=== PATIENT | male | born 1970 | race Caucasian/White ===

== ENCOUNTER → 2016-11-15 | Outpatient (CLI) | payer BC ==
--- NOTE | 2016-11-15 19:25 | XR ---
EXAMINATION TYPE: XR ankle complete RT DATE OF EXAM: 11/15/2016 7:14 PM COMPARISON: NONE HISTORY: Pain and swelling TECHNIQUE: 3 views FINDINGS: Ankle mortise is anatomic. I see no fracture nor dislocation. Joint spaces are normal. IMPRESSION: Negative right ankle exam.
== END | disposition home or self-care (01) ==
LOC: RADXRMAIN 18:45
PROVIDERS: ATTEND Family Medicine
DX: S93.401A Sprain of unspecified ligament of right ankle, initial encounter (principal)

== ENCOUNTER → 2019-01-29 | Outpatient (CLI) | payer BC ==
[2019-01-30 00:03] LABS: Anion Gap 12.5 mmol/L (4.00-12.00); Calcium 9.8 mg/dL (8.7-10.3); Carbon Dioxide 24.5 mmol/L (21.6-31.8); Potassium 5.1 mmol/L (3.5-5.5)
[2019-01-30 05:30] LABS: Hemoglobin A1C 7.5 % (4.0-6.0)
== END ==
LOC: LABWHC1 16:11
PROVIDERS: ATTEND Internal Medicine
DX: E11.9 Type 2 diabetes mellitus without complications (principal)
CPT/HCPCS: 36415; 80048; 83036

== ENCOUNTER 2019-03-04 18:36 | Inpatient (IN) | payer BC ==
[2019-03-04 20:44] LABS: Anisocytosis Slight; Basophils # (A) 0.1 k/uL (0-0.2); Basophils % (A) 1 %; Eosinophils # (A) 0.2 k/uL (0-0.7); Eosinophils % (A) 2 %; HCT 42.9 % (39.0-53.0); HGB 13.5 gm/dL (13.0-17.5); Hypochromasia Slight; Lymphocytes # (A) 2.5 k/uL (1.0-4.8); Lymphocytes % (A) 24 %; MCH 26.1 pg (25.0-35.0); MCHC 31.5 g/dL (31.0-37.0); MCV 82.8 fL (80.0-100.0); Mean Platelet Volume 7.8; Monocytes # (A) 0.6 k/uL (0-1.0); Monocytes % (A) 6 %; Neutrophils # (A) 6.7 k/uL (1.3-7.7); Neutrophils % (A) 65 %; Platelet Count 239 k/uL (150-450); RBC 5.18 m/uL (4.30-5.90); RDW 16.3 % (11.5-15.5); WBC 10.2 k/uL (3.8-10.6)
[2019-03-04 20:52] LABS: Albumin 4.1 g/dL (3.5-5.0); Calcium 9.5 mg/dL (8.4-10.2); INR 1.1 (<1.2); Partial Thromboplastin Time 22.9 sec (22.0-30.0); Potassium 4.8 mmol/L (3.5-5.1); Prothrombin Time 11.8 sec (9.0-12.0); Total Bilirubin 0.9 mg/dL (0.2-1.3); Total Protein 6.5 g/dL (6.3-8.2)
[2019-03-04] MEDS ORDERED: FUROSEMIDE 10 MG/ML 4 ML VIAL IV STA (21:48)
--- NOTE | 2019-03-04 21:50 | ED ---
SOB HPI - General Source: patient Mode of arrival: ambulatory Limitations: no limitations <Nury Sena - Last Filed: 03/05/19 01:04> <Jane Storm - Last Filed: 03/05/19 06:31> - General Chief Complaint: Shortness of Breath Stated Complaint: SOB Time Seen by Provider: 03/04/19 21:27 - History of Present Illness Initial Comments: 48-year-old male patient with history of diabetes presents to the emergency department today for evaluation of shortness of breath. Patient states he has had shortness of breath for the last week which is progressively worsening. Patient states that symptoms worsened significantly over the last 24 hours. Patient states he feels he is unable to lie down or he feels like he will drown. Patient states he is also having increased swelling to the legs. Denies any chest pain. States he is able to walk only very short distances before becoming examination of breath. States he does have a dry cough with this. Denies any sputum production. Denies any hemoptysis. He denies any fever or chills with this. Patient does have a family history of coronary artery disease, his father has 2 stents at age 60. Patient denies any recent rash, abdominal pain, nausea, vomiting, diarrhea, constipation, back pain, numbness, tingling, dizziness, weakness, hematuria, dysuria, urinary urgency, urinary frequency, headache, visual changes, or any other complaints. (Nury Sena) - Related Data Home Medications Medication Instructions Recorded Confirmed Furosemide [Lasix] 20 mg PO DAILY 03/04/19 03/04/19 Potassium Chloride ER [K-Dur 10] 10 meq PO DAILY 03/04/19 03/04/19 sitaGLIPtin PHOS/metFORMIN HCL 1 tab PO DAILY 03/04/19 03/04/19 [Janumet 50-1,000 mg Tablet] Allergies Allergy/AdvReac Type Severity Reaction Status Date / Time No Known Allergies Allergy Verified 03/04/19 18:59 Review of Systems ROS Other: All systems not noted in ROS Statement are negative. <Nury Sena - Last Filed: 03/05/19 01:04> ROS Other: All systems not noted in ROS Statement are negative. <Jane Storm - Last Filed: 03/05/19 06:31> ROS Statement: Those systems with pertinent positive or pertinent negative responses have been documented in the HPI. Past Medical History Past Medical History: Heart Failure, Diabetes Mellitus History of Any Multi-Drug Resistant Organisms: None Reported Past Surgical History: Back Surgery Past Psychological History: No Psychological Hx Reported Smoking Status: Never smoker Past Alcohol Use History: None Reported Past Drug Use History: None Reported <Nury Sena M - Last Filed: 03/05/19 01:04> General Exam Limitations: no limitations General appearance: alert, in no apparent distress, other (This is a well- developed, well-nourished adult male patient in no acute distress. Vital signs upon presentation are temperature 98.0F, pulse 114, respirations 20, blood pressure 127/84, pulse ox 100% on room air.) Eye exam: Present: normal appearance, PERRL, EOMI. Absent: scleral icterus, conjunctival injection, periorbital swelling ENT exam: Present: normal exam, normal oropharynx, mucous membranes moist Respiratory exam: Present: normal lung sounds bilaterally. Absent: respiratory distress, wheezes, rales, rhonchi, stridor Cardiovascular Exam: Present: regular rate, normal rhythm, normal heart sounds. Absent: systolic murmur, diastolic murmur, rubs, gallop, clicks GI/Abdominal exam: Present: soft, normal bowel sounds. Absent: distended, tenderness, guarding, rebound, rigid Neurological exam: Present: alert, oriented X3, CN II-XII intact Psychiatric exam: Present: normal affect, normal mood Skin exam: Present: warm, dry, intact, normal color. Absent: rash <Nury Sena M - Last Filed: 03/05/19 01:04> Course Vital Signs 03/04/19 03/04/19 03/04/19 18:56 20:46 21:50 Temperature 98.0 F 98.5 F Pulse Rate 114 H 114 H 116 H Respiratory 20 18 20 Rate Blood Pressure 127/84 124/81 127/97 O2 Sat by Pulse 100 98 97 Oximetry 03/04/19 03/05/19 03/05/19 23:01 02:00 03:00 Temperature Pulse Rate 112 H 102 H 100 Respiratory 18 20 20 Rate Blood Pressure 117/93 114/79 100/72 O2 Sat by Pulse 98 97 97 Oximetry 03/05/19 06:00 Temperature Pulse Rate 97 Respiratory 16 Rate Blood Pressure 110/76 O2 Sat by Pulse 97 Oximetry Medical Decision Making - Lab Data Result diagrams: 03/04/19 20:13 03/04/19 20:13 - EKG Data -: EKG Interpreted by Ok - Radiology Data Radiology results: report reviewed, image reviewed <Nury Sena - Last Filed: 03/05/19 01:04> - Lab Data Result diagrams: 03/04/19 20:13 03/04/19 20:13 <Jane Storm - Last Filed: 03/05/19 06:31> - Medical Decision Making 48-year-old male patient presents to the emergency department today for evaluation of progressively worsening shortness of breath over the last week. Physical examination did reveal clear equal lung sounds. Patient is tachycardic with rates between 112 and 114. Does exhibit a dry cough and lower extremity nonpitting edema. EKG was obtained and showed sinus tachycardia. Labs reviewed and did reveal elevated BNP at 3800. Elevated troponin at 0.071. Did perform CT angiography of the chest given his elevated heart rate, this shows evidence for small right and left pleural effusions. No evidence for pulmonary embolism. Patient was started on heparin for elevated troponin. Cardiology will be consulted. He is given IV Lasix. Dr. Sams is accepting admission. (Nury Sena) % And evaluated patient. I reviewed the chart, given the patient presented with tachycardia and shortness of breath CT PE study was ordered a resulted negative for any signs of pulmonary embolism there is evidence of congestive heart failure before and after was ordered. Patient was admitted to Dr. sams. (Jane Storm) - Lab Data Lab Results 03/04/19 03/04/19 03/04/19 Range/Units 20:13 20:13 20:13 WBC 10.2 (3.8-10.6) k/uL RBC 5.18 (4.30-5.90) m/uL Hgb 13.5 (13.0-17.5) gm/dL Hct 42.9 (39.0-53.0) % MCV 82.8 (80.0-100.0) fL MCH 26.1 (25.0-35.0) pg MCHC 31.5 (31.0-37.0) g/dL RDW 16.3 H (11.5-15.5) % Plt Count 239 (150-450) k/uL Neutrophils % 65 % Lymphocytes % 24 % Monocytes % 6 % Eosinophils % 2 % Basophils % 1 % Neutrophils # 6.7 (1.3-7.7) k/uL Lymphocytes # 2.5 (1.0-4.8) k/uL Monocytes # 0.6 (0-1.0) k/uL Eosinophils # 0.2 (0-0.7) k/uL Basophils # 0.1 (0-0.2) k/uL Hypochromasia Slight Anisocytosis Slight PT (9.0-12.0) sec INR (<1.2) APTT (22.0-30.0) sec Sodium 143 (137-145) mmol/L Potassium 4.8 (3.5-5.1) mmol/L Chloride 109 H (98-107) mmol/L Carbon Dioxide 26 (22-30) mmol/L Anion Gap 8 mmol/L BUN 16 (9-20) mg/dL Creatinine 1.16 (0.66-1.25) mg/dL Est GFR (CKD-EPI)AfAm 85 (>60 ml/min/1.73 sqM) Est GFR (CKD-EPI)NonAf 74 (>60 ml/min/1.73 sqM) Glucose 113 H (74-99) mg/dL Calcium 9.5 (8.4-10.2) mg/dL Magnesium (1.6-2.3) mg/dL Total Bilirubin 0.9 (0.2-1.3) mg/dL AST 41 (17-59) U/L ALT 44 (21-72) U/L Alkaline Phosphatase 97 (38-126) U/L Troponin I (0.000-0.034) ng/mL NT-Pro-B Natriuret Pep 3530 pg/mL Total Protein 6.5 (6.3-8.2) g/dL Albumin 4.1 (3.5-5.0) g/dL 03/04/19 03/04/19 03/04/19 Range/Units 20:13 20:13 20:13 WBC (3.8-10.6) k/uL RBC (4.30-5.90) m/uL Hgb (13.0-17.5) gm/dL Hct (39.0-53.0) % MCV (80.0-100.0) fL MCH (25.0-35.0) pg MCHC (31.0-37.0) g/dL RDW (11.5-15.5) % Plt Count (150-450) k/uL Neutrophils % % Lymphocytes % % Monocytes % % Eosinophils % % Basophils % % Neutrophils # (1.3-7.7) k/uL Lymphocytes # (1.0-4.8) k/uL Monocytes # (0-1.0) k/uL Eosinophils # (0-0.7) k/uL Basophils # (0-0.2) k/uL Hypochromasia Anisocytosis PT 11.8 (9.0-12.0) sec INR 1.1 (<1.2) APTT 22.9 (22.0-30.0) sec Sodium (137-145) mmol/L Potassium (3.5-5.1) mmol/L Chloride (98-107) mmol/L Carbon Dioxide (22-30) mmol/L Anion Gap mmol/L BUN (9-20) mg/dL Creatinine (0.66-1.25) mg/dL Est GFR (CKD-EPI)AfAm (>60 ml/min/1.73 sqM) Est GFR (CKD-EPI)NonAf (>60 ml/min/1.73 sqM) Glucose (74-99) mg/dL Calcium (8.4-10.2) mg/dL Magnesium 2.1 (1.6-2.3) mg/dL Total Bilirubin (0.2-1.3) mg/dL AST (17-59) U/L ALT (21-72) U/L Alkaline Phosphatase (38-126) U/L Troponin I 0.071 H* (0.000-0.034) ng/mL NT-Pro-B Natriuret Pep pg/mL Total Protein (6.3-8.2) g/dL Albumin (3.5-5.0) g/dL - EKG Data EKG Comments: EKG obtained at 2038 shows sinus tachycardia with a ventricular rate of 112 compare interval 160, QRS duration 142, QT 378, QTC 515. (Nury Sena) - Radiology Data Two-view x-ray of the chest is obtained. Report was reviewed in its entirety. Impression by Dr. Edgar Sullivan shows opacity to the right lower lung zone which partially opacifies the right hemidiaphragm. Mild to moderately enlarged cardiac silhouette. CT angiography of the chest was obtained. Report was reviewed in its entirety. Impression by Dr. Laureano shows cardiomegaly with small right greater than left pleural effusions and intralobular septal thickening. Findings concerning for congestive heart failure. Mildly prominent subcarinal and perihilar lymph nodes, possibly reactive an etiology. (Nury Sena) Disposition Decision to Admit Reason: Admit from EC Decision Date: 03/04/19 Decision Time: 22:28 <Nury Sena - Last Filed: 03/05/19 01:04> <Jane Storm - Last Filed: 03/05/19 06:31> Clinical Impression: CHF (congestive heart failure), Elevated troponin, Dyspnea Disposition: ADMITTED IP TO THIS [facility] Condition: Serious
[2019-03-04] MEDS ORDERED: HEPARIN SODIUM,PORCINE 5,000 UNIT/ML 1 ML VIAL IV PRN (21:57)
[2019-03-04] MEDS ORDERED: HEPARIN SODIUM,PORCINE 5,000 UNIT/ML 1 ML VIAL IV ONE (21:57)
[2019-03-04] MEDS ORDERED: NALOXONE 0.4 MG/ML 1 ML VIAL IV PRN (22:12)
[2019-03-04] MEDS: HEPARIN SOD,PORK IN 0.45% NACL 25,000 UNIT in 0.45% NACL 1 250ML.BAG IV SCH (22:15)
--- NOTE | 2019-03-04 22:35 | XR ---
EXAMINATION: XR chest 2V DATE AND TIME: 03/04/2019 9:38 PM CLINICAL INDICATION: PHH; SOB TECHNIQUE: Departmental protocol COMPARISON: None FINDINGS: There is added opacity within the right lower lung zone which partially opacifies the right hemidiaphragm and is associated with partial right pleural shadow thickening. The findings can corre late with a clinical diagnosis of developing right lower lobe bronchopneumonia and with possibility o f small right pleural effusion. Remainder of the lungs are clear. Pleural space evaluation is otherwise negative. The cardiac silhouette is mild moderately enlarged. Mediastinal silhouette otherwise unremarkable. No acute skeletal or soft tissue findings are evident. IMPRESSION: 1. Right lung base findings. 2. Mild-moderately enlarged cardiac silhouette.
--- NOTE | 2019-03-04 23:13 | CT ---
EXAM: CT Angiography Chest With Intravenous Contrast CLINICAL HISTORY: ITS.REASON CT Reason: Pain TECHNIQUE: Axial computed tomographic angiography images of the chest with intravenous contrast using pulmonary embolism protocol. CTDI is 9.7 mGy and DLP is 390.7 mGy-cm. This CT exam was performed using one or more of the following dose reduction techniques: automated exposure control, adjustment of the mA and/or kV according to patient size, and/or use of iterative reconstruction technique. MIP reconstructed images were created and reviewed. COMPARISON: No relevant prior studies available. FINDINGS: Pulmonary arteries: Unremarkable. No pulmonary embolism. Aorta: No acute findings. No thoracic aortic aneurysm. Lungs: Unremarkable. No mass. No consolidation. Pleural space: Small right pleural effusion. Fluid tracking in the right major fissure. Trace left pleural effusion. Mild diffuse interlobular septal thickening. No pneumothorax. Heart: Cardiomegaly. Trace pericardial fluid. No evidence of RV dysfunction. Bones/joints: No acute fracture. No dislocation. Soft tissues: Unremarkable. Lymph nodes: Mildly prominent subcarinal and perihilar lymph nodes. IMPRESSION: Cardiomegaly with small right greater than left pleural effusions and interlobular septal thickening. Findings concerning for congestive heart failure. Mildly prominent subcarinal and perihilar lymph nodes, possibly reactive in etiology.
[2019-03-05] MEDS ORDERED: traMADol 50 MG TAB PO PRN (07:52)
[2019-03-05] MEDS ORDERED: IPRATROPIUM-ALBUTEROL 3 ML NEB INHALATION PRN (07:52)
--- NOTE | 2019-03-05 08:01 | P.HPIM ---
History of Present Illness This is a pleasant 48 years old male with past medical history of heart failure and diabetes mellitus on Janumet and by mouth Lasix. Presents because of dyspnea for 1 week and a half, his dyspnea is mainly exertional and he went down from walking normally down to 10 feeds before he got dyspneic. He denies orthopnea or paroxysmal nocturnal dyspnea. He denies chest pain or discomfort. No nausea vomiting. However patient is complaining of from cough and a total of clear phlegm. No change in urine or bowel habits. No dizziness. No fever. Patient also has bilateral leg swelling Patient denies history of smoking or illicit drugs. He drinks alcohol occasionally Vitas looks stable, except for mild tachycardia improving this morning.labs are reviewed and show an unremarkable CBC, BMP and liver enzymes. However he has e levated troponin at 0.07 and 0.09. EKG showing sinus tachycardia at 112 with nonspecific intra-ventricular block. He has negative CTA of the thorax for pulmonary embolism, however it is suspicious for congestive heart failure and right-sided pleural effusion. In the emergency room patient was given 1 dose of ventral Lasix, he was started on Lasix 40 mg twice a day and heparin drip. Review of Systems CONSTITUTIONAL: No fever, no malaise, no fatigue. HEENT: No recent visual problems or hearing problems. Denied any sore throat. CARDIOVASCULAR: No orthopnea, PND, no palpitations, no syncope. PULMONARY: No shortness of breath, no cough, no hemoptysis. GASTROINTESTINAL: No diarrhea, no nausea, no vomiting, no abdominal pain. Normoactive bowel sounds. NEUROLOGICAL: No headaches, no weakness, no numbness. HEMATOLOGICAL: Denies any bleeding or petechiae. GENITOURINARY: Denies any burning micturition, frequency, or urgency. MUSCULOSKELETAL/RHEUMATOLOGICAL: Denies any joint pain, swelling, or any muscle pain. ENDOCRINE: Denies any polyuria or polydipsia. Past Medical History Past Medical History: Heart Failure, Diabetes Mellitus History of Any Multi-Drug Resistant Organisms: None Reported Past Surgical History: Back Surgery Past Psychological History: No Psychological Hx Reported Smoking Status: Never smoker Past Alcohol Use History: None Reported Past Drug Use History: None Reported Medications and Allergies Home Medications Medication Instructions Recorded Confirmed Type Furosemide [Lasix] 20 mg PO DAILY 03/04/19 03/04/19 History Potassium Chloride ER [K-Dur 10] 10 meq PO DAILY 03/04/19 03/04/19 History sitaGLIPtin PHOS/metFORMIN HCL 1 tab PO DAILY 03/04/19 03/04/19 History [Janumet 50-1,000 mg Tablet] Allergies Allergy/AdvReac Type Severity Reaction Status Date / Time No Known Allergies Allergy Verified 03/04/19 18:59 Physical Exam Vitals: Vital Signs Temp Pulse Resp BP Pulse Ox 03/05/19 06:00 97 16 110/76 97 03/05/19 03:00 100 20 100/72 97 03/05/19 02:00 102 H 20 114/79 97 03/04/19 23:01 112 H 18 117/93 98 03/04/19 21:50 116 H 20 127/97 97 03/04/19 20:46 98.5 F 114 H 18 124/81 98 03/04/19 18:56 98.0 F 114 H 20 127/84 100 Intake and Output 03/04/19 03/05/19 03/05/19 22:59 06:59 14:59 Intake Total 65 Balance 65 Intake: Intake, IV Titration 65 Amount Heparin Sod,Pork in 0.45% 65 NaCl 25,000 unit In 0.45 % NaCl 1 250ml.bag @ 10. 55 UNITS/KG/HR 10.002 mls /hr IV .Q24H [facility] Rx#: [id number] Other: Weight 94.801 kg GENERAL: The patient is alert and oriented x3, not in any acute distress. Well developed, well nourished. HEENT: Pupils are round and equally reacting to light. EOMI. No scleral icterus. No conjunctival pallor. Normocephalic, atraumatic. No pharyngeal erythema. No thyromegaly. CARDIOVASCULAR: S1 and S2 present. No murmurs, rubs, or gallops. -PULMONARY: Chest is clear to auscultation, no wheezing. Bilateral basal crepitation ABDOMEN: Soft, nontender, nondistended, normoactive bowel sounds. No palpable organomegaly. MUSCULOSKELETAL: No joint swelling or deformity. -EXTREMITIES: No cyanosis, clubbing,. Bilateral moderate leg edema, pitting.- NEUROLOGICAL: Gross neurological examination did not reveal any focal deficits. SKIN: No rashes. Results CBC & Chem 7: 03/04/19 20:13 03/04/19 20:13 Labs: Abnormal Lab Results - Last 24 Hours (Table) 03/04/19 03/04/19 03/04/19 Range/Units 20:13 20:13 20:13 RDW 16.3 H (11.5-15.5) % APTT (22.0-30.0) sec Chloride 109 H (98-107) mmol/L Glucose 113 H (74-99) mg/dL Troponin I 0.071 H* (0.000-0.034) ng/mL 03/05/19 03/05/19 Range/Units 02:26 03:49 RDW (11.5-15.5) % APTT 41.6 H (22.0-30.0) sec Chloride (98-107) mmol/L Glucose (74-99) mg/dL Troponin I 0.093 H* (0.000-0.034) ng/mL Assessment and Plan Assessment: Elevated troponins, mostly non-ST elevation myocardial infarction Acute on chronic congestive heart failure, unknown ejection fraction Type 2 diabetes mellitus Plan: This is a pleasant 48 years old male who presents with non-STEMI and acute CHF. Continue with heparin drip. Cardiology consult. Order echocardiogram. Pain management regarding chronic or recurrent continue with insulin sliding scale. Hold Janumet for now Labs and medication were reviewed.. Continue same treatment. Continue with symptomatic treatment. Resume home medication. Monitor lytes and vitals. DVT and GI prophylaxis. Further recommendations of the clinical course of the patient DVT prophylaxis: heparin GI Prophylaxis: Pepcid PT/OT: Pending Prognosis is guarded
--- NOTE | 2019-03-05 09:18 | P.CRDCN ---
History of Present Illness Consult date: 03/05/19 Requesting physician: Biju E Sheet Reason for Consult (text): Shortness of breath Chief complaint: Exertional shortness of breath, bilateral leg swelling History of present illness: This is a pleasant 48-year-old gentleman with history of hypertension in the past, he states he was taken off his blood pressure pills because his blood pressure has been running normal, diagnosed with diabetes one year ago, never been told to have hyperlipidemia and he is not currently on a statin, he is a nonsmoker, rarely drinks alcohol. Patient presents to the hospital with symptoms of progressively worsening exertional shortness of breath, PND and orthopnea, lower extremity edema, which has been present for approximately 2 weeks, worsening in severity especially over the past couple of days. He also states that over the past couple of days he's noted associated heart racing. Patient does state that his father had stents placed in his 60s, patient has had a prior stress test but that was performed in 2001. The patient denies any recent viral illness, he just complains of a hacking cough which has been present for about 2 weeks. Patient went to be evaluated at the outpatient [facility], an x-ray was performed there which showed fluid in his lungs and he was advised to come to the emergency room. Chest x-ray performed here which revealed a possible small right pleural effusion and congestive heart failure. CTA of the chest negative for pulmonary embolism, cardiomegaly with small right greater than left pleural effusions and interlobular septal thickening findings concerning for congestive heart failure. EKG showed a sinus tachycardia with a left bundle-branch block pattern. Blood pressure on arrival here 127/80 with a heart rate of 116, 100% on room air. Blood pressure this morning 110/70 with a heart rate in the 90s, 97% on 2 L of oxygen. White blood cell count 10.2, hemoglobin 13.5, platelet count 239. Sodium 143, potassium 4.8, BUN 16 and creatinine 1.1. Magnesium 2.1. BNP level 3530. Troponin 0.071 ,.093. At the time of my examination this morning, patient denies any shortness of breath sitting up in bed, he does state that he feels his fluid collection is less in his body then when he presented here. Patient was initiated on IV Lasix on arrival here, he is also on IV heparin. We will start the patient on a baby aspirin, and initiate, lisinopril, and metoprolol 25 daily, as well as some Aldactone. Continue IV Lasix and IV heparin at this time. Past Medical History Past Medical History: Heart Failure, Diabetes Mellitus History of Any Multi-Drug Resistant Organisms: None Reported Past Surgical History: Back Surgery Past Psychological History: No Psychological Hx Reported Smoking Status: Never smoker Past Alcohol Use History: None Reported Past Drug Use History: None Reported Medications and Allergies Home Medications Medication Instructions Recorded Confirmed Type Furosemide [Lasix] 20 mg PO DAILY 03/04/19 03/04/19 History Potassium Chloride ER [K-Dur 10] 10 meq PO DAILY 03/04/19 03/04/19 History sitaGLIPtin PHOS/metFORMIN HCL 1 tab PO DAILY 03/04/19 03/04/19 History [Janumet 50-1,000 mg Tablet] Allergies Allergy/AdvReac Type Severity Reaction Status Date / Time No Known Allergies Allergy Verified 03/04/19 18:59 Physical Exam Vitals: Vital Signs Temp Pulse Resp BP Pulse Ox 03/05/19 06:00 97 16 110/76 97 03/05/19 03:00 100 20 100/72 97 03/05/19 02:00 102 H 20 114/79 97 03/04/19 23:01 112 H 18 117/93 98 03/04/19 21:50 116 H 20 127/97 97 03/04/19 20:46 98.5 F 114 H 18 124/81 98 03/04/19 18:56 98.0 F 114 H 20 127/84 100 Intake and Output 03/04/19 03/05/19 03/05/19 22:59 06:59 14:59 Intake Total 65 Balance 65 Intake: Intake, IV Titration 65 Amount Heparin Sod,Pork in 0.45% 65 NaCl 25,000 unit In 0.45 % NaCl 1 250ml.bag @ 10. 55 UNITS/KG/HR 10.002 mls /hr IV .Q24H [facility] Rx#: [id number] Other: Weight 94.801 kg PHYSICAL EXAMINATION: GENERAL: 48-year-old gentleman in no acute distress at the time of my examination HEENT: Head is atraumatic, normocephalic. Pupils equal, round. Sclera anicteric. Conjunctiva are clear. Mucous membranes of the mouth are moist. Neck is supple. There is elevated jugular venous pressure. No carotid bruit is heard. HEART EXAMINATION: Heart S1, S2 normal. No murmur or gallop heard. CHEST EXAMINATION: Lungs reveal diminished air entry to bilateral bases, fine rales heard bilaterally. ABDOMEN: Soft, nontender. Bowel sounds are heard. No organomegaly noted. EXTREMITIES:[ 2+ peripheral pulses with trace evidence of bilateral peripheral edema NEUROLOGIC patient is awake, alert and oriented 3 . . Results 03/04/19 20:13 03/04/19 20:13 Cardiac Enzymes 03/04/19 03/04/19 03/05/19 Range/Units 20:13 20:13 02:26 AST 41 (17-59) U/L Troponin I 0.071 H* 0.093 H* (0.000-0.034) ng/mL Coagulation 03/04/19 03/05/19 Range/Units 20:13 03:49 PT 11.8 (9.0-12.0) sec APTT 22.9 41.6 H (22.0-30.0) sec CBC 03/04/19 Range/Units 20:13 WBC 10.2 (3.8-10.6) k/uL RBC 5.18 (4.30-5.90) m/uL Hgb 13.5 (13.0-17.5) gm/dL Hct 42.9 (39.0-53.0) % Plt Count 239 (150-450) k/uL Comprehensive Metabolic Panel 03/04/19 Range/Units 20:13 Sodium 143 (137-145) mmol/L Potassium 4.8 (3.5-5.1) mmol/L Chloride 109 H (98-107) mmol/L Carbon Dioxide 26 (22-30) mmol/L BUN 16 (9-20) mg/dL Creatinine 1.16 (0.66-1.25) mg/dL Glucose 113 H (74-99) mg/dL Calcium 9.5 (8.4-10.2) mg/dL AST 41 (17-59) U/L ALT 44 (21-72) U/L Alkaline Phosphatase 97 (38-126) U/L Total Protein 6.5 (6.3-8.2) g/dL Albumin 4.1 (3.5-5.0) g/dL Current Medications Generic Name Dose Route Start Last Admin Trade Name Freq PRN Reason Stop Dose Admin Albuterol/Ipratropium 3 ml 03/05/19 07:52 Duoneb 0.5 Mg-3 Mg/3 Ml Soln INHALATION RT-QID PRN Shortness Of Breath Or Wheezing Famotidine 20 mg 03/05/19 09:00 Pepcid IV Q12HR [facility] Furosemide 40 mg 03/05/19 09:00 Lasix IV Q12HR [facility] Heparin Sodium (Porcine) 0 unit 03/04/19 21:57 03/05/19 04:48 Heparin IV 2,370 unit PER PROTOCOL PRN Administration Low PTT Protocol Heparin Sodium/Sodium Chloride 250 mls @ 10.002 mls/hr 03/04/19 22:00 03/05/19 04:45 25,000 unit/ Sodium Chloride IV 12.66 units/kg/hr .Q24H [facility] 12 mls/hr Titration Protocol 10.55 UNITS/KG/HR Sodium Chloride 1,000 mls @ 20 mls/hr 03/04/19 22:15 Saline 0.9% IV .Q24H [facility] Lisinopril 2.5 mg 03/05/19 09:00 Zestril PO DAILY [facility] Metoprolol Succinate 25 mg 03/05/19 09:00 Toprol Xl PO DAILY [facility] Naloxone HCl 0.2 mg 03/04/19 22:12 Narcan IV Q2M PRN Opioid Reversal Spironolactone 25 mg 03/05/19 09:00 Aldactone PO DAILY [facility] Tramadol HCl 50 mg 03/05/19 07:52 Ultram PO QID PRN Pain Intake and Output 03/04/19 03/05/19 03/05/19 22:59 06:59 14:59 Intake Total 65 Balance 65 Intake: Intake, IV Titration 65 Amount Heparin Sod,Pork in 0.45% 65 NaCl 25,000 unit In 0.45 % NaCl 1 250ml.bag @ 10. 55 UNITS/KG/HR 10.002 mls /hr IV .Q24H [facility] Rx#: [id number] Other: Weight 94.801 kg 03/04/19 20:13 03/04/19 20:13 EKG Interpretations (text) EKG shows a sinus tachycardia with a left bundle-branch block pattern Assessment and Plan Plan: Assessment and plan #1 congestive cardiac failure, LV function unknown #2 non-Q-wave HI, troponins 0.071, 0.093. #3 diabetes #4 prior documented history of hypertension, not currently on any antihypertensives. #5 family history of premature coronary artery disease Plan We will obtain an echocardiogram with Doppler study, repeat EKG, start the patient on a baby aspirin, metoprolol, lisinopril, and Aldactone. Continue to diurese the patient with IV Lasix, continue IV heparin and obtain a third troponin value. Patient will require cardiac catheterization during this admission, the risks and the benefits were explained to the patient and his in details. Further recommendations to follow. DNP note has been reviewed, I agree with a documented findings and plan of care. Patient was seen and examined.
[2019-03-05 09:50] LABS: Anisocytosis Slight; Basophils # (A) 0.1 k/uL (0-0.2); Basophils % (A) 1 %; Eosinophils # (A) 0.3 k/uL (0-0.7); Eosinophils % (A) 3 %; HCT 39.6 % (39.0-53.0); HGB 12.5 gm/dL (13.0-17.5); Lymphocytes # (A) 2.7 k/uL (1.0-4.8); Lymphocytes % (A) 27 %; MCH 26.1 pg (25.0-35.0); MCHC 31.6 g/dL (31.0-37.0); MCV 82.5 fL (80.0-100.0); Monocytes # (A) 0.6 k/uL (0-1.0); Monocytes % (A) 6 %; Neutrophils % (A) 61 %; Platelet Count 222 k/uL (150-450); RDW 16.4 % (11.5-15.5); WBC 9.7 k/uL (3.8-10.6)
[2019-03-05 11:36] LABS: Glucose,Whole Blood 133 mg/dL (75-99)
[2019-03-05] MEDS: ASPIRIN 81 MG PO SCH (16:35)
[2019-03-05] MEDS: METOPROLOL SUCCINATE (ER) 25 MG TAB.ER.24H PO SCH (16:35)
[2019-03-05] MEDS: SPIRONOLACTONE 25 MG TAB PO SCH (16:35)
[2019-03-05] MEDS: LISINOPRIL 2.5 MG TAB PO SCH (16:35)
[2019-03-05] MEDS: FUROSEMIDE 10 MG/ML 4 ML VIAL IV SCH ×2 (16:36→19:44)
[2019-03-05] MEDS: FAMOTIDINE 20 MG/2 ML VIAL IV SCH ×2 (16:36→19:43)
[2019-03-05 18:30] LABS: Glucose,Whole Blood 149 mg/dL (75-99)
[2019-03-05] MEDS: SODIUM CHLORIDE 0.9% 1,000 ML IV SCH (18:56)
--- NOTE | 2019-03-05 19:04 | ECHOF ---
Referral Reason:new heart failure MEASUREMENTS -------- HEIGHT: 180.3 cm WEIGHT: 94.8 kg BP: 110/76 IVSd: 1.0 cm (0.6 - 1.1) LVIDd: 6.6 cm (3.9 - 5.3) LVPWd: 0.9 cm (0.6 - 1.1) IVSs: 1.0 cm LVIDs: 5.6 cm LVPWs: 1.4 cm RVIDd: 3.9 cm (< 3.3) LAESV Index (A-L): 39.26 ml/m Ao Diam: 2.8 cm (2.0 - 3.7) LA Diam: 3.5 cm (2.7 - 3.8) AV Cusp: 2.0 cm (1.5 - 2.6) EPSS: 2.3 cm MV E Tony: 0.86 m/s MV DecT: 127 ms MV A Tony: 0.25 m/s MV E/A Ratio: 3.38 RAP: 5.00 mmHg RVSP: 39.23 mmHg MV EF SLOPE: 156.47 mm/s (70 - 150) MV EXCURSION: 21.87 mm (> 18.000) FINDINGS -------- Sinus rhythm. This was a technically good study. The left ventricle is moderately dilated. Left ventricular wall thickness is normal. There is sev ere global hypokinesis of LV . Overall left ventricular systolic function is severely impaired with , an EF < 20%. The right ventricle is mild to moderately enlarged. LA is moderately dilated 34-39 ml/m2 The right atrial size is normal. Interatrial and interventricular septum intact. The aortic valve is trileaflet and appears structurally normal. Moderate mitral regurgitation is present. Moderate tricuspid regurgitation present. There is mild pulmonary hypertension. The right ventric ular systolic pressure, as measured by Doppler, is 39.23mmHg. There is no pulmonic regurgitation present. The aortic root size is normal. Normal inferior vena cava with normal inspiratory collapse consistent with estimated right atrial pre ssure of 5 mmHg. There is no pericardial effusion. CONCLUSIONS -------- 1. Sinus rhythm. 2. This was a technically good study. 3. The left ventricle is moderately dilated. 4. Left ventricular wall thickness is normal. 5. There is severe global hypokinesis of LV . 6. Overall left ventricular systolic function is severely impaired with, an EF < 20%. 7. The right ventricle is mild to moderately enlarged. 8. LA is moderately dilated 34-39 ml/m2 9. The right atrial size is normal. 10. Interatrial and interventricular septum intact. 11. The aortic valve is trileaflet and appears structurally normal. 12. Moderate mitral regurgitation is present. 13. Moderate tricuspid regurgitation present. 14. There is mild pulmonary hypertension. 15. The right ventricular systolic pressure, as measured by Doppler, is 39.23mmHg. 16. There is no pulmonic regurgitation present. 17. The aortic root size is normal. 18. Normal inferior vena cava with normal inspiratory collapse consistent with estimated right atrial pressure of 5 mmHg. 19. There is no pericardial effusion. MANUFACTURING LEAD: Sherry Valencia RDCS
[2019-03-05] MEDS: HEPARIN SOD,PORK IN 0.45% NACL 25,000 UNIT in 0.45% NACL 1 250ML.BAG IV SCH (19:44)
[2019-03-06 05:27] LABS: Glucose,Whole Blood 139 mg/dL (75-99)
[2019-03-06] MEDS: SODIUM CHLORIDE 0.9% 1,000 ML IV SCH (05:40)
[2019-03-06 06:29] LABS: Basophils # (A) 0.1 k/uL (0-0.2); Basophils % (A) 1 %; Eosinophils # (A) 0.3 k/uL (0-0.7); Eosinophils % (A) 3 %; HCT 38.9 % (39.0-53.0); HGB 12.4 gm/dL (13.0-17.5); Lymphocytes # (A) 3.1 k/uL (1.0-4.8); Lymphocytes % (A) 35 %; MCH 26.5 pg (25.0-35.0); Mean Platelet Volume 7.3; Monocytes # (A) 0.4 k/uL (0-1.0); Monocytes % (A) 5 %; Neutrophils # (A) 4.7 k/uL (1.3-7.7); Neutrophils % (A) 54 %; Platelet Count 233 k/uL (150-450); RBC 4.69 m/uL (4.30-5.90); RDW 15.5 % (11.5-15.5); WBC 8.7 k/uL (3.8-10.6)
[2019-03-06 07:00] LABS: Calcium 8.9 mg/dL (8.4-10.2); Potassium 4.1 mmol/L (3.5-5.1)
[2019-03-06] MEDS: LISINOPRIL 2.5 MG TAB PO SCH (08:43)
[2019-03-06] MEDS: ASPIRIN 81 MG PO SCH (08:44)
[2019-03-06] MEDS: FUROSEMIDE 10 MG/ML 4 ML VIAL IV SCH ×2 (08:44→21:25)
[2019-03-06] MEDS: METOPROLOL SUCCINATE (ER) 25 MG TAB.ER.24H PO SCH (08:44)
[2019-03-06] MEDS: FAMOTIDINE 20 MG/2 ML VIAL IV SCH (08:44)
[2019-03-06] MEDS: SPIRONOLACTONE 25 MG TAB PO SCH (08:44)
[2019-03-06 11:34] VITALS: BMI 28.2
[2019-03-06] MEDS ORDERED: SODIUM CHLORIDE 0.9% 1,000 ML in EMPTY BAG 1 BAG IV ONE (11:36)
[2019-03-06] MEDS ORDERED: ALPRAZolam 0.5 MG TAB PO PRN (11:36)
[2019-03-06] MEDS ORDERED: ATORVASTATIN 80 MG TAB PO STA (11:36)
[2019-03-06] MEDS ORDERED: ALPRAZolam 0.25 MG TAB PO PRN (11:36)
[2019-03-06] MEDS ORDERED: ASPIRIN 325 MG TAB PO STA (11:36)
[2019-03-06] MEDS ORDERED: NITROGLYCERIN SL TABS 0.4 MG TAB SUBLINGUAL PRN (11:36)
--- NOTE | 2019-03-06 11:36 | P.PN ---
Subjective Progress Note Date: 03/06/19 This is a pleasant 48-year-old gentleman with history of hypertension in the past, he states he was taken off his blood pressure pills because his blood pressure has been running normal, diagnosed with diabetes one year ago, never been told to have hyperlipidemia and he is not currently on a statin, he is a nonsmoker, rarely drinks alcohol. Patient presents to the hospital with symptoms of progressively worsening exertional shortness of breath, PND and orthopnea, lower extremity edema, which has been present for approximately 2 weeks, worsening in severity especially over the past couple of days. He also states that over the past couple of days he's noted associated heart racing. Patient does state that his father had stents placed in his 60s, patient has had a prior stress test but that was performed in 2001. The patient denies any recent viral illness, he just complains of a hacking cough which has been present for about 2 weeks. Patient went to be evaluated at the outpatient clinic, an x-ray was performed there which showed fluid in his lungs and he was advised to come to the emergency room. Chest x-ray performed here which revealed a possible small right pleural effusion and congestive heart failure. CTA of the chest negative for pulmonary embolism, cardiomegaly with small right greater than left pleural effusions and interlobular septal thickening findings concerning for congestive heart failure. EKG showed a sinus tachycardia with a left bundle-branch block pattern. Blood pressure on arrival here 127/80 with a heart rate of 116, 100% on room air. Blood pressure this morning 110/70 with a heart rate in the 90s, 97% on 2 L of oxygen. White blood cell count 10.2, hemoglobin 13.5, platelet count 239. Sodium 143, potassium 4.8, BUN 16 and creatinine 1.1. Magnesium 2.1. BNP level 3530. Troponin 0.071 ,.093. At the time of my examination this morning, patient denies any shortness of breath sitting up in bed, he does state that he feels his fluid collection is less in his body then when he presented here. Patient was initiated on IV Lasix on arr ival here, he is also on IV heparin. We will start the patient on a baby aspirin, and initiate, lisinopril, and metoprolol 25 daily, as well as some Aldactone. Continue IV Lasix and IV heparin at this time. 03/06/2019 Patient seen and examined this morning, diuresed well through the night last n ight, weight is down significantly this morning. However the patient still has orthopnea and is unable to lie flat without becoming quite short of breath. We will continue the current dose of IV Lasix.echocardiogram with Doppler study reveals an ejection fraction of less than 20%, global hypokinesia, moderate MR, moderate TR. We will plan on proceeding with cardiac catheterization tomorrow, the risks and benefits were explained to the patient in detail and he is willing to proceed. Objective - Vital Signs Vital signs: Vital Signs Temp 97.9 F 03/06/19 08:00 Pulse 96 03/06/19 08:00 Resp 16 03/06/19 08:00 BP 99/72 03/06/19 08:00 Pulse Ox 97 03/06/19 05:55 Intake & Output 03/05/19 03/06/19 03/06/19 18:59 06:59 18:59 Intake Total 379.8 Output Total 800 400 Balance -800 -20.2 Weight 89.3 kg Intake: Intake, IV Titration 379.8 Amount Heparin Sod,Pork in 0.45% 179.8 NaCl 25,000 unit In 0.45 % NaCl 1 250ml.bag @ 10. 55 UNITS/KG/HR 10.002 mls /hr IV .Q24H [facility] Rx#: [id number] Sodium Chloride 0.9% 1, 200 000 ml @ 20 mls/hr IV . Q24H [facility] Rx#:[id number] Output: Urine 800 400 Other: Voiding Method Urinal Urinal # Voids 2 - Exam PHYSICAL EXAMINATION: GENERAL: 48-year-old gentleman in no acute distress at the time of my examination HEENT: Head is atraumatic, normocephalic. Pupils equal, round. Sclera anicteric. Conjunctiva are clear. Mucous membranes of the mouth are moist. Neck is supple. There is elevated jugular venous pressure. No carotid bruit is heard. HEART EXAMINATION: Heart S1, S2 normal. No murmur or gallop heard. CHEST EXAMINATION: Lungs reveal diminished air entry to bilateral bases, fine ra les heard bilaterally. ABDOMEN: Soft, nontender. Bowel sounds are heard. No organomegaly noted. EXTREMITIES:[ 2+ peripheral pulses with trace evidence of bilateral peripheral edema NEUROLOGIC patient is awake, alert and oriented 3 . - Labs CBC & Chem 7: 03/06/19 05:49 03/06/19 05:49 Labs: Abnormal Lab Results - Last 24 Hours (Table) 03/05/19 03/05/19 03/06/19 Range/Units 11:35 18:28 05:25 Hgb (13.0-17.5) gm/dL Hct (39.0-53.0) % APTT (22.0-30.0) sec BUN (9-20) mg/dL Glucose (74-99) mg/dL POC Glucose (mg/dL) 133 H 149 H 139 H (75-99) mg/dL 03/06/19 03/06/19 03/06/19 Range/Units 05:49 05:49 05:49 Hgb 12.4 L (13.0-17.5) gm/dL Hct 38.9 L (39.0-53.0) % APTT 67.5 H (22.0-30.0) sec BUN 21 H (9-20) mg/dL Glucose 139 H (74-99) mg/dL POC Glucose (mg/dL) (75-99) mg/dL Assessment and Plan Plan: Assessment and plan #1 congestive cardiac failure, systolic acute on chronic #2 non-Q-wave IN, troponins 0.071, 0.093. #3 diabetes #4 prior documented history of hypertension, not currently on any antihypertensives. #5 family history of premature coronary artery disease Plan Echocardiogram with Doppler study revealed an ejection fraction of less than 20%. We'll recommend to continue current dose of IV Lasix, plan for cardiac catheterization in the morning. Risks and benefits were explained to the patient in detail and he is willing to proceed. DNP note has been reviewed, I agree with a documented findings and plan of care. Patient was seen and examined.
[2019-03-06 12:02] LABS: Glucose,Whole Blood 213 mg/dL (75-99)
--- NOTE | 2019-03-06 12:53 | P.PN ---
Subjective This is a pleasant 48 years old male with past medical history of heart failure and diabetes mellitus on Janumet and by mouth Lasix. Presents because of dyspnea for 1 week and a half, his dyspnea is mainly exertional and he went down from walking normally down to 10 feeds before he got dyspneic. He denies orthopnea or paroxysmal nocturnal dyspnea. He denies chest pain or discomfort. No nausea vomiting. However patient is complaining of from cough and a total of clear phlegm. No change in urine or bowel habits. No dizziness. No fever. Patient also has bilateral leg swelling Patient denies history of smoking or illicit drugs. He drinks alcohol occasionally Vitas looks stable, except for mild tachycardia improving this morning.labs are reviewed and show an unremarkable CBC, BMP and liver enzymes. However he has elevated troponin at 0.07 and 0.09. EKG showing sinus tachycardia at 112 with nonspecific intra-ventricular block. He has negative CTA of the thorax for pulmonary embolism, however it is suspicious for congestive heart failure and right-sided pleural effusion. In the emergency room patient was given 1 dose of ventral Lasix, he was started on Lasix 40 mg twice a day and heparin drip. 03/06/2019 Patient today is fully awake, not in distress, he denies chest pain but he complains from orthopnea and he has to use the pillows. Which is important to his note for cardiac cath. Patient is still in need for dialysis. This will have 2+ leg swelling in both sides. Cardiology evaluated the patient and plan for cardiac cath for him. Currently he continue on heparin drip. Hemodynamically stable. Labs are unremarkable. Echocardiogram showing ejection fraction less than 20% with global hypokinesia and moderate mitral regurgitation and moderate tricuspid regurgitation Objective - Vital Signs Vital signs: Vital Signs Temp 97.9 F 03/06/19 08:00 Pulse 96 03/06/19 08:00 Resp 16 03/06/19 08:00 BP 99/72 03/06/19 08:00 Pulse Ox 97 03/06/19 05:55 Intake & Output 03/05/19 03/06/19 03/06/19 18:59 06:59 18:59 Intake Total 379.8 Output Total 800 400 Balance -800 -20.2 Weight 89.3 kg 89.3 kg Intake: Intake, IV Titration 379.8 Amount Heparin Sod,Pork in 0.45% 179.8 NaCl 25,000 unit In 0.45 % NaCl 1 250ml.bag @ 10. 55 UNITS/KG/HR 10.002 mls /hr IV .Q24H [facility] Rx#: [id number] Sodium Chloride 0.9% 1, 200 000 ml @ 20 mls/hr IV . Q24H [facility] Rx#:[id number] Output: Urine 800 400 Other: Voiding Method Urinal Urinal # Voids 2 - Exam GENERAL: The patient is alert and oriented x3, not in any acute distress. Well developed, well nourished. HEENT: Pupils are round and equally reacting to light. EOMI. No scleral icterus. No conjunctival pallor. Normocephalic, atraumatic. No pharyngeal erythema. No thyromegaly. CARDIOVASCULAR: S1 and S2 present. No murmurs, rubs, or gallops. -PULMONARY: Chest is clear to auscultation, no wheezing. Bilateral basal crepitation ABDOMEN: Soft, nontender, nondistended, normoactive bowel sounds. No palpable organomegaly. MUSCULOSKELETAL: No joint swelling or deformity. -EXTREMITIES: No cyanosis, clubbing,. Bilateral moderate leg edema, pitting.- NEUROLOGICAL: Gross neurological examination did not reveal any focal deficits. SKIN: No rashes. - Labs CBC & Chem 7: 03/06/19 05:49 03/06/19 05:49 Labs: Abnormal Lab Results - Last 24 Hours (Table) 03/05/19 03/06/19 03/06/19 Range/Units 18:28 05:25 05:49 Hgb 12.4 L (13.0-17.5) gm/dL Hct 38.9 L (39.0-53.0) % APTT (22.0-30.0) sec BUN (9-20) mg/dL Glucose (74-99) mg/dL POC Glucose (mg/dL) 149 H 139 H (75-99) mg/dL 03/06/19 03/06/19 03/06/19 Range/Units 05:49 05:49 11:51 Hgb (13.0-17.5) gm/dL Hct (39.0-53.0) % APTT 67.5 H (22.0-30.0) sec BUN 21 H (9-20) mg/dL Glucose 139 H (74-99) mg/dL POC Glucose (mg/dL) 213 H (75-99) mg/dL Assessment and Plan Assessment: Elevated troponins, mostly non-ST elevation myocardial infarction Acute on chronic systolic congestive heart failure, ejection fraction less than 20% with global hypokinesia Valvular heart disease, moderate mitral regurgitation and moderate tricuspid regurgitation Type 2 diabetes mellitus Plan: This is a pleasant 48 years old male who presents with non-STEMI and acute CHF. Continue with heparin drip. Cardiology consult. Order echocardiogram. Pain management regarding chronic or recurrent continue with insulin sliding scale. Hold Janumet for now Labs and medication were reviewed.. Continue same treatment. Continue with symptomatic treatment. Resume home medication. Monitor lytes and vitals. DVT and GI prophylaxis. Further recommendations of the clinical course of the patient DVT prophylaxis: heparin GI Prophylaxis: Pepcid PT/OT: Pending Prognosis is guarded
[2019-03-06 15:33] LABS: Hemoglobin A1C 7.7 % (4.0-6.0)
[2019-03-06 17:05] LABS: Glucose,Whole Blood 127 mg/dL (75-99)
[2019-03-06] MEDS: FAMOTIDINE 20 MG TAB PO SCH (21:25)
[2019-03-06 21:26] LABS: Glucose,Whole Blood 222 mg/dL (75-99)
[2019-03-06] MEDS: HEPARIN SOD,PORK IN 0.45% NACL 25,000 UNIT in 0.45% NACL 1 250ML.BAG IV SCH (21:26)
[2019-03-07] MEDS: SODIUM CHLORIDE 0.9% 1,000 ML IV SCH ×3 (00:15→23:56)
[2019-03-07 05:53] LABS: Glucose,Whole Blood 123 mg/dL (75-99)
[2019-03-07] MEDS: ASPIRIN 81 MG PO SCH (06:27)
[2019-03-07] MEDS: FAMOTIDINE 20 MG TAB PO SCH ×2 (06:27→20:22)
[2019-03-07 07:22] LABS: Calcium 9.1 mg/dL (8.4-10.2); Potassium 4.6 mmol/L (3.5-5.1)
[2019-03-07] MEDS: SPIRONOLACTONE 25 MG TAB PO SCH (08:09)
[2019-03-07] MEDS: METOPROLOL SUCCINATE (ER) 25 MG TAB.ER.24H PO SCH (08:10)
[2019-03-07] MEDS: LISINOPRIL 2.5 MG TAB PO SCH (08:10)
[2019-03-07] MEDS ORDERED: LIDOCAINE 1% INJ 10MG/ML (20 ML MDV) ONE (12:38)
[2019-03-07] MEDS ORDERED: fentaNYL (PF) 50 MCG/ML 2 ML AMP ONE (12:38)
[2019-03-07] MEDS ORDERED: VERAPAMIL 2.5 MG/ML 2 ML AMP ONE (12:38)
[2019-03-07] MEDS ORDERED: HEPARIN SODIUM 1,000 UN/ML (10ML VL) ONE (12:39)
[2019-03-07] MEDS ORDERED: ASPIRIN 81 MG ONE (12:50)
[2019-03-07] MEDS ORDERED: ASPIRIN 81 MG PO ONE (12:52)
[2019-03-07] MEDS ORDERED: IV FLUID CONTINUATION 400 ML IV ONE (12:52)
[2019-03-07] MEDS ORDERED: fentaNYL (PF) 50 MCG/ML 2 ML AMP IV ONE (12:54)
[2019-03-07] MEDS ORDERED: MIDAZOLAM (PF) 2 MG/2 ML VIAL IVP ONE (12:54)
[2019-03-07] MEDS ORDERED: LIDOCAINE 1% INJ 10MG/ML (20 ML MDV) SQ ONE (12:58)
[2019-03-07] MEDS: VERAPAMIL SYRINGE (5 MG/10 ML) INTRAARTER ONE ×2 (13:05→13:18)
[2019-03-07] MEDS ORDERED: HEPARIN SODIUM 1,000 UN/ML (10ML VL) IV ONE (13:07)
[2019-03-07] MEDS ORDERED: IOPAMIDOL-370 125ML BTL INJ ONE (13:17)
[2019-03-07] MEDS ORDERED: RX INFO: IV CONTRAST WAS GIVEN 1 EACH MISC MISCELLANE PRN (13:23)
--- NOTE | 2019-03-07 14:18 | P.PN ---
Subjective This is a pleasant 48 years old male with past medical history of heart failure and diabetes mellitus on Janumet and by mouth Lasix. Presents because of dyspnea for 1 week and a half, his dyspnea is mainly exertional and he went down from walking normally down to 10 feeds before he got dyspneic. He denies orthopnea or paroxysmal nocturnal dyspnea. He denies chest pain or discomfort. No nausea vomiting. However patient is complaining of from cough and a total of clear phlegm. No change in urine or bowel habits. No dizziness. No fever. Patient also has bilateral leg swelling Patient denies history of smoking or illicit drugs. He drinks alcohol occasionally Vitas looks stable, except for mild tachycardia improving this morning.labs are reviewed and show an unremarkable CBC, BMP and liver enzymes. However he has elevated troponin at 0.07 and 0.09. EKG showing sinus tachycardia at 112 with nonspecific intra-ventricular block. He has negative CTA of the thorax for pulmonary embolism, however it is suspicious for congestive heart failure and right-sided pleural effusion. In the emergency room patient was given 1 dose of ventral Lasix, he was started on Lasix 40 mg twice a day and heparin drip. 03/06/2019 Patient today is fully awake, not in distress, he denies chest pain but he complains from orthopnea and he has to use the pillows. Which is important to his note for cardiac cath. Patient is still in need for dialysis. This will have 2+ leg swelling in both sides. Cardiology evaluated the patient and plan for cardiac cath for him. Currently he continue on heparin drip. Hemodynamically stable. Labs are unremarkable. Echocardiogram showing ejection fraction less than 20% with global hypokinesia and moderate mitral regurgitation and moderate tricuspid regurgitation 03/07/2019 Patient is awake and alert. No chest pain or dyspnea. He still have some orthopnea but is improving. Patient is not in distress. No new complaints. He had negative cardiac cath today (primary report). He is hemodynamically stable. Creatinine is slightly up at 1.3. Sugar is controlled. Heparin drip was stopped and patient was started on subcutaneous heparin for DVT prophylaxis. Cardiology team are following the case. Objective - Vital Signs Vital signs: Vital Signs Temp 97.4 F L 03/07/19 08:00 Pulse 88 03/07/19 14:08 Resp 16 03/07/19 14:08 BP 104/73 03/07/19 14:08 Pulse Ox 96 06/13/19 13:53 Intake & Output 03/06/19 03/07/19 03/07/19 18:59 06:59 18:59 Intake Total 1330 100 Output Total 400 Balance 1330 -300 Weight 89.3 kg 87.7 kg Intake: IV 100 Intake, IV Titration 370 Amount Heparin Sod,Pork in 0.45% 250 NaCl 25,000 unit In 0.45 % NaCl 1 250ml.bag @ 10. 55 UNITS/KG/HR 10.002 mls /hr IV .Q24H [facility] Rx#: [id number] Sodium Chloride 0.9% 1, 120 000 ml In Empty Bag 1 bag @ 1 ML/KG/HR 89.3 mls/hr IV .[id number] [facility] Rx#: [id number] Oral 960 Output: Urine 400 Other: Voiding Method Toilet Toilet # Voids 3 - Exam GENERAL: The patient is alert and oriented x3, not in any acute distress. Well developed, well nourished. HEENT: Pupils are round and equally reacting to light. EOMI. No scleral icterus. No conjunctival pallor. Normocephalic, atraumatic. No pharyngeal erythema. No thyromegaly. CARDIOVASCULAR: S1 and S2 present. No murmurs, rubs, or gallops. -PULMONARY: Chest is clear to auscultation, no wheezing. Bilateral basal crepitation ABDOMEN: Soft, nontender, nondistended, normoactive bowel sounds. No palpable organomegaly. MUSCULOSKELETAL: No joint swelling or deformity. -EXTREMITIES: No cyanosis, clubbing,. Bilateral moderate leg edema, pitting.- NEUROLOGICAL: Gross neurological examination did not reveal any focal deficits. SKIN: No rashes. - Labs CBC & Chem 7: 03/06/19 05:49 03/07/19 05:46 Labs: Abnormal Lab Results - Last 24 Hours (Table) 03/06/19 03/06/19 03/06/19 Range/Units 05:49 16:52 21:26 BUN (9-20) mg/dL Creatinine (0.66-1.25) mg/dL Glucose (74-99) mg/dL POC Glucose (mg/dL) 127 H 222 H (75-99) mg/dL Hemoglobin A1c 7.7 H (4.0-6.0) % 03/07/19 03/07/19 Range/Units 05:46 05:51 BUN 21 H (9-20) mg/dL Creatinine 1.31 H (0.66-1.25) mg/dL Glucose 128 H (74-99) mg/dL POC Glucose (mg/dL) 123 H (75-99) mg/dL Hemoglobin A1c (4.0-6.0) % Assessment and Plan Assessment: Elevated troponins, mostly non-ST elevation myocardial infarction Acute on chronic systolic congestive heart failure, ejection fraction less than 20% with global hypokinesia Valvular heart disease, moderate mitral regurgitation and moderate tricuspid regurgitation Type 2 diabetes mellitus Plan: This is a pleasant 48 years old male who presents with non-STEMI and acute CHF. Continue with heparin drip. Cardiology consult. Order echocardiogram. Pain management regarding chronic or recurrent continue with insulin sliding scale. Hold Janumet for now Labs and medication were reviewed.. Continue same treatment. Continue with symptomatic treatment. Resume home medication. Monitor lytes and vitals. DVT and GI prophylaxis. Further recommendations of the clinical course of the patient DVT prophylaxis: heparin GI Prophylaxis: Pepcid PT/OT: Pending Prognosis is guarded
[2019-03-07 16:26] LABS: Glucose,Whole Blood 218 mg/dL (75-99)
[2019-03-07] MEDS: FUROSEMIDE 10 MG/ML 4 ML VIAL IV SCH ×2 (16:44→20:22)
[2019-03-07] MEDS: DOBUTamine DRIP 500 MG in DEXTROSE/WATER 1 250ML.BAG IV SCH (16:45)
--- NOTE | 2019-03-07 18:07 | P.CARDCATH ---
Date of Procedure: 03/07/19 Preoperative Diagnosis: Cardiomyopathy, congestive heart failure, rule out ischemic heart disease Postoperative Diagnosis: Normal coronaries Description of Procedure: HISTORY: This is a 48-year-old gentleman who was admitted to the hospital with acute systolic congestive heart failure with evidence of cardiomyopathy. Patient is advised to have cardiac catheterization to rule out underlying ischemic heart disease. Patient also has left bundle branch block pattern CONSENT:I have discussed the risks, benefits and alternative therapies for the above-mentioned procedure and for both sedation/analgesia as well as necessary blood product administration, if indicated, as they pertain to this patient. The patient has indicated understanding and acceptance of the risks and procedures discussed. PROCEDURE: Patient was brought to the lab in a fasting state. Patient was given some IV sedation. The right wrist is infiltrated with lidocaine and right radial artery was entered using Seldinger technique. A 6-Turkish catheter was left in place and selective coronary arteriography was performed. Patient tolerated the procedure well. TR band was applied for hemostasis. No immediate complications were noted and patient was transferred to [facility] in a stable condition Conscious Sedation: Versed 1mg Fentanyl 50 g Duration 20minutes HEMODYNAMICS: The aortic pressure is about 90/50. Left ankle end-diastolic pressure is about 25. There was no gradient across the aortic valve SELECTIVE CORONARY ARTERIOGRAPHY: LEFT MAIN: Normal length and free of occlusive disease THE LEFT ANTERIOR DESCENDING CORONARY ARTERY: Fair caliber vessel. Free of occlusive disease. Reaches the apex THE LEFT CIRCUMFLEX AND IS CORONARY ARTERY: Moderate caliber vessel free of occlusive disease THE RIGHT CORONARY ARTERY: . Dominant vessel. Free of occlusive disease LEFT VENTRICULOGRAPHY: . Not performed FINAL IMPRESSION: , Normal coronary arteries. Elevated end-diastolic pressure PLAN: Maximum medical therapy. PROGNOSIS: Guarded
[2019-03-07] MEDS: HEPARIN SOD,PORK IN 0.45% NACL 25,000 UNIT in 0.45% NACL 1 250ML.BAG IV SCH (19:58)
[2019-03-07] MEDS: HEPARIN SODIUM,PORCINE 5,000 UNIT/ML 1 ML VIAL SQ SCH ×2 (20:22→23:57)
[2019-03-07] MEDS: CARVEDILOL 3.125 MG TAB PO SCH (20:22)
[2019-03-07 21:05] LABS: Glucose,Whole Blood 94 mg/dL (75-99)
[2019-03-08 06:34] LABS: Basophils % (A) 0 %; Eosinophils # (A) 0.2 k/uL (0-0.7); Eosinophils % (A) 2 %; HCT 38.5 % (39.0-53.0); HGB 12.2 gm/dL (13.0-17.5); Lymphocytes # (A) 1.7 k/uL (1.0-4.8); Lymphocytes % (A) 26 %; MCH 26.4 pg (25.0-35.0); MCHC 31.6 g/dL (31.0-37.0); MCV 83.4 fL (80.0-100.0); Mean Platelet Volume 7.4; Monocytes # (A) 0.4 k/uL (0-1.0); Monocytes % (A) 6 %; Neutrophils # (A) 4.1 k/uL (1.3-7.7); Neutrophils % (A) 62 %; Platelet Count 223 k/uL (150-450); RBC 4.62 m/uL (4.30-5.90); RDW 15.3 % (11.5-15.5); WBC 6.7 k/uL (3.8-10.6)
[2019-03-08] MEDS: CARVEDILOL 3.125 MG TAB PO SCH ×2 (06:34→15:59)
[2019-03-08 06:35] LABS: Glucose,Whole Blood 115 mg/dL (75-99)
[2019-03-08 06:46] LABS: Calcium 9.1 mg/dL (8.4-10.2)
[2019-03-08] MEDS: HEPARIN SODIUM,PORCINE 5,000 UNIT/ML 1 ML VIAL SQ SCH ×3 (08:26→23:18)
[2019-03-08] MEDS: FUROSEMIDE 10 MG/ML 4 ML VIAL IV SCH (08:26)
[2019-03-08] MEDS: SPIRONOLACTONE 25 MG TAB PO SCH (08:27)
[2019-03-08] MEDS: FAMOTIDINE 20 MG TAB PO SCH ×2 (08:27→20:22)
[2019-03-08] MEDS: ASPIRIN 81 MG PO SCH (08:27)
[2019-03-08] MEDS: LISINOPRIL 2.5 MG TAB PO SCH (08:27)
[2019-03-08] MEDS: DOBUTamine DRIP 500 MG in DEXTROSE/WATER 1 250ML.BAG IV SCH (11:41)
[2019-03-08 11:46] LABS: Glucose,Whole Blood 129 mg/dL (75-99)
[2019-03-08] MEDS: DIGOXIN 250 MCG/ML 2 ML AMP IVP SCH ×2 (15:59→20:22)
--- NOTE | 2019-03-08 16:07 | P.PN ---
Subjective Progress Note Date: 03/08/19 This is a 48-year-old gentleman was admitted to the hospital at the evidence of congestive heart failure and cardiomyopathy with ejection fraction of 20%. Patient had a cardiac catheterization yesterday. He was found to have normal coronary arteries. His CHF is felt to be nonischemic cardiomyopathy related. Patient was on dobutamine for 24 hours. He is feeling better. His urine output is good. He lost several pounds. His electrolytes are within normal limits. I'm going to discontinue dobutamine and start him on digoxin by mouth. We'll continue the rest of the medication. If critically stable, will discharge home in a.m. His puncture site in the right wrist seemed to be healing well Objective - Vital Signs Vital signs: Vital Signs Temp 97.7 F 03/08/19 05:00 Pulse 90 03/08/19 11:50 Resp 16 03/08/19 11:50 BP 101/61 03/08/19 11:50 Pulse Ox 93 L 03/08/19 11:50 Intake & Output 03/07/19 03/08/19 03/08/19 18:59 06:59 18:59 Intake Total 922 1089.068 Output Total 400 2720 Balance 522 -1630.932 Weight 86.5 kg Intake: IV 100 Intake, IV Titration 600 249.068 Amount DOBUTamine DRIP 500 mg In 249.068 Dextrose/Water 1 250ml. bag @ 5 MCG/KG/MIN 13.155 mls/hr IV .Q19H1M [facility] Rx #:[id number] Sodium Chloride 0.9% 1, 600 000 ml @ 50 mls/hr IV . Q20H [facility] Rx#:[id number] Oral 222 840 Output: Urine 400 2720 Other: Voiding Method Toilet Toilet # Voids 1 - Exam GENERAL EXAM: Patient is alert and oriented and doesn't appear to be in any ac luis m distress HEENT: Normocephalic. Normal reaction of pupils, equal size, normal range of extraocular motion. No erythema or exudates in the throat. NECK: No masses, no nuchal rigidity. CHEST: No chest wall deformity. LUNGS: Equal air entry with no crackles or wheeze. HEART: S1 and S2 normal,tachycardic ABDOMEN: No hepatosplenomegaly, normal bowel sounds, no guarding or rigidity. SKIN: No rashes CENTRAL NERVOUS SYSTEM: No focal deficits. EXTREMITIES: No cyanosis, clubbing or edema. - Labs CBC & Chem 7: 03/08/19 05:59 03/08/19 05:59 Labs: Abnormal Lab Results - Last 24 Hours (Table) 03/07/19 03/08/19 03/08/19 Range/Units 16:25 05:59 05:59 Hgb 12.2 L (13.0-17.5) gm/dL Hct 38.5 L (39.0-53.0) % Glucose 113 H (74-99) mg/dL POC Glucose (mg/dL) 218 H (75-99) mg/dL 03/08/19 03/08/19 Range/Units 06:32 11:37 Hgb (13.0-17.5) gm/dL Hct (39.0-53.0) % Glucose (74-99) mg/dL POC Glucose (mg/dL) 115 H 129 H (75-99) mg/dL Assessment and Plan (1) Acute systolic (congestive) heart failure Current Visit: Yes Status: Acute Code(s): I50.21 - ACUTE SYSTOLIC (CONGESTIVE) HEART FAILURE SNOMED Code(s): 451300087 (2) Nonischemic cardiomyopathy Current Visit: Yes Status: Acute Code(s): I42.8 - OTHER CARDIOMYOPATHIES SNOMED Code(s): 67758745 Plan: Continue current medical therapy. Digoxin to be added. Increase activity as tolerated. Possible discharge in a.m.
[2019-03-08 17:08] LABS: Glucose,Whole Blood 101 mg/dL (75-99)
[2019-03-08] MEDS: SODIUM CHLORIDE 0.9% 1,000 ML IV SCH (20:29)
[2019-03-08] MEDS: HEPARIN SOD,PORK IN 0.45% NACL 25,000 UNIT in 0.45% NACL 1 250ML.BAG IV SCH (20:29)
[2019-03-08 21:00] LABS: Glucose,Whole Blood 179 mg/dL (75-99)
[2019-03-09] MEDS: DOBUTamine DRIP 500 MG in DEXTROSE/WATER 1 250ML.BAG IV SCH (04:37)
[2019-03-09] MEDS: SODIUM CHLORIDE 0.9% 1,000 ML IV SCH (04:38)
[2019-03-09 06:15] LABS: Glucose,Whole Blood 115 mg/dL (75-99)
[2019-03-09] MEDS: CARVEDILOL 3.125 MG TAB PO SCH (06:26)
[2019-03-09 06:38] LABS: Basophils % (A) 1 %; Eosinophils # (A) 0.3 k/uL (0-0.7); Eosinophils % (A) 4 %; HCT 40.9 % (39.0-53.0); HGB 12.8 gm/dL (13.0-17.5); Lymphocytes # (A) 2.2 k/uL (1.0-4.8); Lymphocytes % (A) 30 %; MCHC 31.3 g/dL (31.0-37.0); MCV 83.1 fL (80.0-100.0); Mean Platelet Volume 7.2; Monocytes # (A) 0.4 k/uL (0-1.0); Monocytes % (A) 6 %; Neutrophils # (A) 4.1 k/uL (1.3-7.7); Neutrophils % (A) 57 %; Platelet Count 211 k/uL (150-450); RBC 4.93 m/uL (4.30-5.90); RDW 15.2 % (11.5-15.5); WBC 7.2 k/uL (3.8-10.6)
--- NOTE | 2019-03-09 06:57 | P.PN ---
Subjective This is a pleasant 48 years old male with past medical history of heart failure and diabetes mellitus on Janumet and by mouth Lasix. Presents because of dyspnea for 1 week and a half, his dyspnea is mainly exertional and he went down from walking normally down to 10 feeds before he got dyspneic. He denies orthopnea or paroxysmal nocturnal dyspnea. He denies chest pain or discomfort. No nausea vomiting. However patient is complaining of from cough and a total of clear phlegm. No change in urine or bowel habits. No dizziness. No fever. Patient also has bilateral leg swelling Patient denies history of smoking or illicit drugs. He drinks alcohol occasionally Vitas looks stable, except for mild tachycardia improving this morning.labs are reviewed and show an unremarkable CBC, BMP and liver enzymes. However he has elevated troponin at 0.07 and 0.09. EKG showing sinus tachycardia at 112 with nonspecific intra-ventricular block. He has negative CTA of the thorax for pulmonary embolism, however it is suspicious for congestive heart failure and right-sided pleural effusion. In the emergency room patient was given 1 dose of ventral Lasix, he was started on Lasix 40 mg twice a day and heparin drip. 03/06/2019 Patient today is fully awake, not in distress, he denies chest pain but he complains from orthopnea and he has to use the pillows. Which is important to his note for cardiac cath. Patient is still in need for dialysis. This will have 2+ leg swelling in both sides. Cardiology evaluated the patient and plan for cardiac cath for him. Currently he continue on heparin drip. Hemodynamically stable. Labs are unremarkable. Echocardiogram showing ejection fraction less than 20% with global hypokinesia and moderate mitral regurgitation and moderate tricuspid regurgitation 03/07/2019 Patient is awake and alert. No chest pain or dyspnea. He still have some orthopnea but is improving. Patient is not in distress. No new complaints. He had negative cardiac cath today (primary report). He is hemodynamically stable. Creatinine is slightly up at 1.3. Sugar is controlled. Heparin drip was stopped and patient was started on subcutaneous heparin for DVT prophylaxis. Cardiology team are following the case. 03/08/2019 Patient without chest pain or dyspnea. He is currently continue on dobutamine drip. His orthopnea Has resolved. Current blood pressure 101/61. He is afebrile. CBC and BMP was unremarkable from today. Cardiology team are following the case closely. Objective - Vital Signs Vital signs: Vital Signs Temp 97.7 F 03/08/19 05:00 Pulse 90 03/08/19 11:50 Resp 16 03/08/19 11:50 BP 101/61 03/08/19 11:50 Pulse Ox 93 L 03/08/19 11:50 Intake & Output 03/07/19 03/08/19 03/08/19 18:59 06:59 18:59 Intake Total 922 1089.068 Output Total 400 2720 Balance 522 -1630.932 Weight 86.5 kg Intake: IV 100 Intake, IV Titration 600 249.068 Amount DOBUTamine DRIP 500 mg In 249.068 Dextrose/Water 1 250ml. bag @ 5 MCG/KG/MIN 13.155 mls/hr IV .Q19H1M [facility] Rx #:[id number] Sodium Chloride 0.9% 1, 600 000 ml @ 50 mls/hr IV . Q20H [facility] Rx#:[id number] Oral 222 840 Output: Urine 400 2720 Other: Voiding Method Toilet Toilet # Voids 1 - Exam GENERAL: The patient is alert and oriented x3, not in any acute distress. Well developed, well nourished. HEENT: Pupils are round and equally reacting to light. EOMI. No scleral icterus. No conjunctival pallor. Normocephalic, atraumatic. No pharyngeal erythema. No thyromegaly. CARDIOVASCULAR: S1 and S2 present. No murmurs, rubs, or gallops. -PULMONARY: Chest is clear to auscultation, no wheezing. Bilateral basal crepitation ABDOMEN: Soft, nontender, nondistended, normoactive bowel sounds. No palpable organomegaly. MUSCULOSKELETAL: No joint swelling or deformity. -EXTREMITIES: No cyanosis, clubbing,. Bilateral moderate leg edema, pitting.- NEUROLOGICAL: Gross neurological examination did not reveal any focal deficits. SKIN: No rashes. - Labs CBC & Chem 7: 03/09/19 05:40 03/08/19 05:59 Labs: Abnormal Lab Results - Last 24 Hours (Table) 03/07/19 03/08/19 03/08/19 Range/Units 16:25 05:59 05:59 Hgb 12.2 L (13.0-17.5) gm/dL Hct 38.5 L (39.0-53.0) % Glucose 113 H (74-99) mg/dL POC Glucose (mg/dL) 218 H (75-99) mg/dL 03/08/19 03/08/19 Range/Units 06:32 11:37 Hgb (13.0-17.5) gm/dL Hct (39.0-53.0) % Glucose (74-99) mg/dL POC Glucose (mg/dL) 115 H 129 H (75-99) mg/dL Assessment and Plan Assessment: Elevated troponins, mostly non-ST elevation myocardial infarction Acute on chronic systolic congestive heart failure, ejection fraction less than 20% with global hypokinesia Valvular heart disease, moderate mitral regurgitation and moderate tricuspid regurgitation Type 2 diabetes mellitus Plan: This is a pleasant 48 years old male who presents with non-STEMI and acute CHF. Continue with heparin drip. Cardiology consult. Order echocardiogram. Pain management regarding chronic or recurrent continue with insulin sliding scale. Hold Janumet for now Labs and medication were reviewed.. Continue same treatment. Continue with symptomatic treatment. Resume home medication. Monitor lytes and vitals. DVT and GI prophylaxis. Further recommendations of the clinical course of the patient DVT prophylaxis: heparin GI Prophylaxis: Pepcid PT/OT: Pending Prognosis is guarded
[2019-03-09 07:10] LABS: Calcium 9.6 mg/dL (8.4-10.2); Potassium 5.1 mmol/L (3.5-5.1)
[2019-03-09 08:18] VITALS: RESP 18
[2019-03-09] MEDS: SPIRONOLACTONE 25 MG TAB PO SCH (08:20)
[2019-03-09] MEDS: LISINOPRIL 2.5 MG TAB PO SCH (08:20)
[2019-03-09] MEDS: ASPIRIN 81 MG PO SCH (08:20)
[2019-03-09] MEDS: HEPARIN SODIUM,PORCINE 5,000 UNIT/ML 1 ML VIAL SQ SCH (08:20)
[2019-03-09] MEDS: FAMOTIDINE 20 MG TAB PO SCH (08:20)
[2019-03-09] MEDS ORDERED: FUROSEMIDE 40 MG TAB PO SCH (09:00)
[2019-03-09 11:15] VITALS: BP 104/68; PULSE 83; TEMP 97.8
[2019-03-09 11:19] LABS: Glucose,Whole Blood 96 mg/dL (75-99)
--- NOTE | 2019-03-09 16:36 | P.PN ---
Subjective Progress Note Date: 03/09/19 This is a 48-year-old gentleman was admitted to the hospital at the evidence of congestive heart failure and cardiomyopathy with ejection fraction of 20%. Patient had a cardiac catheterization yesterday. He was found to have normal coronary arteries. His CHF is felt to be nonischemic cardiomyopathy related. Patient was on dobutamine for 24 hours. He is feeling better. His urine output is good. He lost several pounds. His electrolytes are within normal limits. I'm going to discontinue dobutamine and start him on digoxin by mouth. We'll continue the rest of the medication. If critically stable, will discharge home in a.m. His puncture site in the right wrist seemed to be healing well. 03/09/2019: This patient is admitted to the hospital with congestive heart failure and cardiomyopathy with an ejection fraction of 20%. Patient cardiac catheterization did not reveal any obstructive disease. Patient has been treated with diuretics, Coreg, Lanoxin, and also Aldactone. Patient is feeling better and tolerating activity. Patient is still slightly tachycardic. Patient wants to go home. His BUN/creatinine are slightly elevated. Potassium is of slightly high at 5.1. I'm going to cut back the dose of the Aldactone 12.5 mg by mouth twice a day. Patient could be discharged home on current medical therapy. Patient to have follow-up BMP as an outpatient within a week. Follow up as an outpatient. Prognosis still guarded Objective - Vital Signs Vital signs: Vital Signs Temp 97.8 F 03/09/19 11:14 Pulse 83 03/09/19 11:14 Resp 18 03/09/19 11:14 BP 104/68 03/09/19 11:14 Pulse Ox 96 03/09/19 11:14 Intake & Output 03/08/19 03/09/19 03/09/19 18:59 06:59 18:59 Intake Total 1329.068 113.791 702 Output Total 2720 600 Balance -1390.932 113.791 102 Weight 86.5 kg 86 kg Intake: Intake, IV Titration 249.068 113.791 Amount DOBUTamine DRIP 500 mg In 249.068 113.791 Dextrose/Water 1 250ml. bag @ 5 MCG/KG/MIN 13.155 mls/hr IV .Q19H1M [facility] Rx #:[id number] Oral 1080 702 Output: Urine 2720 600 Other: Voiding Method Toilet Toilet # Voids 1 # Bowel Movements 1 - Exam GENERAL EXAM: Patient is alert and oriented and doesn't appear to be in any acute distress HEENT: Normocephalic. Normal reaction of pupils, equal size, normal range of extraocular motion. No erythema or exudates in the throat. NECK: No masses, no nuchal rigidity. CHEST: No chest wall deformity. LUNGS: Equal air entry with no crackles or wheeze. HEART: S1 and S2 normal,tachycardic ABDOMEN: No hepatosplenomegaly, normal bowel sounds, no guarding or rigidity. SKIN: No rashes CENTRAL NERVOUS SYSTEM: No focal deficits. EXTREMITIES: No cyanosis, clubbing or edema. - Labs CBC & Chem 7: 03/09/19 05:40 03/09/19 05:40 Labs: Abnormal Lab Results - Last 24 Hours (Table) 03/08/19 03/08/19 03/09/19 Range/Units 16:46 20:58 05:40 Hgb 12.8 L (13.0-17.5) gm/dL Glucose (74-99) mg/dL POC Glucose (mg/dL) 101 H 179 H (75-99) mg/dL 03/09/19 03/09/19 Range/Units 05:40 06:09 Hgb (13.0-17.5) gm/dL Glucose 118 H (74-99) mg/dL POC Glucose (mg/dL) 115 H (75-99) mg/dL Assessment and Plan (1) Acute systolic (congestive) heart failure Status: Acute Code(s): I50.21 - ACUTE SYSTOLIC (CONGESTIVE) HEART FAILURE SNOMED Code(s): 073259513 (2) Nonischemic cardiomyopathy Status: Acute Code(s): I42.8 - OTHER CARDIOMYOPATHIES SNOMED Code(s): 67175492 Plan: Patient is critically feeling better. Wants to go home. Tolerating activity.. Patient is being discharged home on Lasix 40 mg by mouth twice a day, Aldactone 12.5 mg daily, Lanoxin 0.125 mg daily, lisinopril 2.5 mg daily. Follow-up BMP as an outpatient within a week. Follow-up in one week
[2019-03-10] MEDS ORDERED: SPIRONOLACTONE 25 MG TAB PO SCH (09:00)
== END 2019-03-09 14:28 | disposition home or self-care (01) | DRG 280 ==
LOC: EC 18:36 → 3SCARD 23:35
PROVIDERS: ADMIT Internal Medicine; ATTEND Internal Medicine
PROC: B2111ZZ Fluoroscopy of Multiple Coronary Arteries using Low Osmolar Contrast (ICD-10-PCS; 2019-03-07)
PROC: 4A023N7 Measurement of Cardiac Sampling and Pressure, Left Heart, Percutaneous Approach (ICD-10-PCS; principal; 2019-03-07 12:33)
DX: I21.4 Non-ST elevation (NSTEMI) myocardial infarction (principal); I50.23 Acute on chronic systolic (congestive) heart failure; I42.8 Other cardiomyopathies; E11.9 Type 2 diabetes mellitus without complications; I08.1 Rheumatic disorders of both mitral and tricuspid valves; I44.7 Left bundle-branch block, unspecified; Z79.84 Long term (current) use of oral hypoglycemic drugs; Z79.899 Other long term (current) drug therapy; Z82.49 Family history of ischemic heart disease and other diseases of the circulatory system
CPT/HCPCS: 36415; 71046; 71275; 80048; 80053; 83036; 83735; 83880; 84484; 85025; 85610; 85730; 93005; 93306; 93458; 96365; 96366; 96375; 96376; 99285

== ENCOUNTER → 2019-05-11 | Outpatient (CLI) | payer BC ==
[2019-05-11 10:35] LABS: African American GFR (CKD) 88 (>60 ml/min/1.73 sqM); Anion Gap 9 mmol/L; Blood Urea Nitrogen 22 mg/dL (9-20); Calcium 9.6 mg/dL (8.4-10.2); Carbon Dioxide 28 mmol/L (22-30); Chloride 101 mmol/L (98-107); Glucose 186 mg/dL (74-99); Potassium 4.8 mmol/L (3.5-5.1); Sodium 138 mmol/L (137-145)
== END | disposition home or self-care (01) ==
LOC: LABWHC1 05-08 12:27
PROVIDERS: ATTEND Internal Medicine Cardiovascular Disease
DX: I50.9 Heart failure, unspecified (principal)
CPT/HCPCS: 36415; 80048

== ENCOUNTER → 2019-11-01 | Outpatient (CLI) | payer BC ==
[2019-11-01 11:36] LABS: Basophils % (A) 1 %; Eosinophils # (A) 0.1 k/uL (0-0.7); Eosinophils % (A) 2 %; HCT 39.7 % (39.0-53.0); HGB 13.2 gm/dL (13.0-17.5); Lymphocytes # (A) 1.7 k/uL (1.0-4.8); Lymphocytes % (A) 29 %; MCH 27.8 pg (25.0-35.0); MCHC 33.2 g/dL (31.0-37.0); MCV 83.6 fL (80.0-100.0); Mean Platelet Volume 8.1; Monocytes # (A) 0.3 k/uL (0-1.0); Monocytes % (A) 6 %; Neutrophils # (A) 3.5 k/uL (1.3-7.7); Neutrophils % (A) 59 %; Platelet Count 204 k/uL (150-450); RBC 4.75 m/uL (4.30-5.90); RDW 12.8 % (11.5-15.5); WBC 5.9 k/uL (3.8-10.6)
[2019-11-01 12:54] LABS: Erythrocyte Sedimentation Rate 5 mm/hr (0-15)
[2019-11-01 17:16] LABS: African American GFR (CKD) 89.6 (60.0-200.0); Anion Gap 8.4 mmol/L (4.00-12.00); BUN/Creat Ratio 18.18 Ratio (12.00-20.00); Calcium 9.1 mg/dL (8.7-10.3); Carbon Dioxide 25.6 mmol/L (21.6-31.8); Non-African American GFR(CKD) 77.3 (60.0-200.0); Potassium 4.2 mmol/L (3.5-5.5)
[2019-11-02 23:41] LABS: Hemoglobin A1C 11.6 % (4.0-6.0)
== END | disposition home or self-care (01) ==
LOC: LABWHC1 09:48
PROVIDERS: ATTEND Internal Medicine Cardiovascular Disease
DX: I11.0 Hypertensive heart disease with heart failure (principal); I10 Essential (primary) hypertension; R20.2 Paresthesia of skin; I73.00 Raynaud's syndrome without gangrene
CPT/HCPCS: 36415; 80048; 83036; 85025; 85652; 86038; 86431

== ENCOUNTER 2023-12-04 11:04 | Inpatient (IN) | payer BC ==
[2023-12-04 11:34] LABS: Glucose,Whole Blood 157 mg/dL (70-110)
[2023-12-04 12:10] LABS: Basophils % (A) 1 %; Eosinophils # (A) 0.1 k/uL (0-0.7); Eosinophils % (A) 2 %; HCT 39.7 % (39.0-53.0); HGB 13.5 gm/dL (13.0-17.5); Lymphocytes # (A) 1.3 k/uL (1.0-4.8); Lymphocytes % (A) 19 %; MCH 28.4 pg (25.0-35.0); MCHC 33.9 g/dL (31.0-37.0); MCV 83.7 fL (80.0-100.0); Mean Platelet Volume 8.3; Monocytes # (A) 0.5 k/uL (0-1.0); Monocytes % (A) 7 %; Neutrophils # (A) 4.8 k/uL (1.3-7.7); Neutrophils % (A) 70 %; Platelet Count 223 k/uL (150-450); RBC 4.75 m/uL (4.30-5.90); RDW 14.2 % (11.5-15.5); WBC 6.9 k/uL (3.8-10.6)
[2023-12-04 12:15] LABS: ALT 30 U/L (4-49); AST 45 U/L (17-59); African American GFR (CKD) >90 (>60 ml/min/1.73 sqM); Alkaline Phosphatase 103 U/L (38-126); Anion Gap 8 mmol/L; Blood Urea Nitrogen 23 mg/dL (9-20); Calcium 9.3 mg/dL (8.4-10.2); Carbon Dioxide 25 mmol/L (22-30); Chloride 106 mmol/L (98-107); Creatine Kinase 79 U/L (55-170); Glucose 165 mg/dL (74-99); Non-African American GFR(CKD) >90 (>60 ml/min/1.73 sqM); Potassium 4.6 mmol/L (3.5-5.1); Sodium 139 mmol/L (137-145); Total Bilirubin 0.6 mg/dL (0.2-1.3); Total Protein 6.6 g/dL (6.3-8.2)
[2023-12-04 12:22] LABS: Partial Thromboplastin Time 22.8 sec (22.0-30.0); Prothrombin Time 10.7 sec (10.0-12.5)
[2023-12-04 12:58] LABS: Appearance,Urine Clear (Clear); Bilirubin,Urine Negative (Negative); Blood,Urine Negative (Negative); Color,Urine Colorless; Glucose,Urine (UA) 4+ (Negative); Ketones,Urine Negative (Negative); Leukocyte Esterase,Urine Negative (Negative); Nitrite,Urine Negative (Negative); Protein,Urine Negative (Negative); Specific Gravity,Urine 1.033 (1.001-1.035); Urobilinogen,Urine <2.0 mg/dL (<2.0)
[2023-12-04 13:08] LABS: Cocaine Screen,Urine Not Detected (NotDetected); Phencyclidine Screen,Urine Not Detected (NotDetected); Urn Cannabinoid Scrn Not Detected (NotDetected)
[2023-12-04 13:09] LABS: Amphetamine Screen,Urine Detected (NotDetected); Barbiturate Screen,Urine Not Detected (NotDetected); Benzodiazepines Screen,Urine Not Detected (NotDetected); Methadone Screen, Urine Not Detected (NotDetected); Opiate Screen,Urine Not Detected (NotDetected); Oxycodone Screen, Urine Not Detected (NotDetected); Tricyclic Antidepressant,Urine Not Detected (NotDetected)
--- NOTE | 2023-12-04 14:08 | CT ---
EXAMINATION TYPE: CT brain wo con DATE OF EXAM: 12/04/2023 COMPARISON: None available. HISTORY: Weakness. CT DLP: 1193.1 mGycm Automated exposure control for dose reduction was used. FINDINGS: There is no acute intracranial hemorrhage, mass, mass effect, midline shift, extra-axial fluid collec tion or hydrocephalus. The mahajan-white distinction is intact without evidence of an acute major vessel infarct. The visualized paranasal sinuses and mastoid air cells are clear. IMPRESSION: NO ACUTE INTRACRANIAL PROCESS.
--- NOTE | 2023-12-04 14:13 | XR ---
EXAMINATION TYPE: XR chest 2V DATE OF EXAM: 12/04/2023 COMPARISON: NONE HISTORY: Weakness and slurred speech. TECHNIQUE: Frontal and lateral views of the chest are obtained. FINDINGS: There is no focal air space opacity, pleural effusion, or pneumothorax seen. The cardiac silhouette size is within normal limits. The osseous structures are intact. IMPRESSION: No acute cardiopulmonary process.
--- NOTE | 2023-12-04 14:47 | ED ---
General Adult HPI - General Chief complaint: Neuro Symptoms/Deficit Stated complaint: Neuro Symptoms Time Seen by Provider: 12/04/23 12:00 Source: patient, RN notes reviewed, old records reviewed Mode of arrival: ambulatory Limitations: no limitations - History of Present Illness Initial comments: Patient is a 53-year-old male who presents emergency department complaining of strokelike symptoms for 5 days. They are improving and finally he was told to come to the emergency department by his treasury representative for evaluation. Denies chest pain, abdominal pain, nausea, vomiting. Has a history of cardiomyopathy. Denies any trauma. 5 days ago he began experiencing right-sided facial droop with dysarthria. Symptoms are improved as before family had a hard time understanding him but he resisted coming to the emergency department for evaluation. Presents today for further evaluation. He has no other acute complaints at this time. No prior history of stroke. States he is not on blood thinners. Presents for further evaluation. - Related Data Home Medications Medication Instructions Recorded Confirmed Empagliflozin [Jardiance] 10 mg PO DAILY 12/04/23 12/04/23 Furosemide [Lasix] 20 mg PO DAILY 12/04/23 12/04/23 Insulin Glargine,Hum.rec.anlog 20 unit SQ BID 12/04/23 12/04/23 [Basaglar Kwikpen U-100] Losartan [Cozaar] 25 mg PO HS 12/04/23 12/04/23 Rosuvastatin [Crestor] 20 mg PO HS 12/04/23 12/04/23 Spironolactone [Aldactone] 25 mg PO DAILY 12/04/23 12/04/23 carvediloL [Coreg] 6.25 mg PO BID 12/04/23 12/04/23 Previous Rx's Medication Instructions Recorded Nitroglycerin Sl Tabs [Nitrostat] 0.4 mg SUBLINGUAL Q5M PRN #30 tab 03/09/19 Allergies Allergy/AdvReac Type Severity Reaction Status Date / Time No Known Allergies Allergy Verified 12/04/23 13:35 Review of Systems ROS Statement: Those systems with pertinent positive or pertinent negative responses have been documented in the HPI. Review of Systems: CONST: Denies fever EYES: Denies blurry vision ENT: Denies nasal congestion C/V: Denies Chest pain RESP: Denies shortness of breath GI: Denies abdominal pain : Denies dysuria SKIN: Denies rash. MSK: Denies joint pain. NEURO: Denies headache ROS Other: All systems not noted in ROS Statement are negative. Past Medical History Past Medical History: Heart Failure, Diabetes Mellitus, GERD/Reflux, Osteoarthritis (OA), Renal Disease Additional Past Medical History / Comment(s): NIDDM type II, neuropathy bilateral feet, R leg nerve damage-cannot pick foot up very well, recent vertigo and lower leg edema, generalized arthritis, pt states his labs for kidney function have been somewhat elevated. History of Any Multi-Drug Resistant Organisms: None Reported Past Surgical History: Back Surgery Additional Past Surgical History / Comment(s): Lower back surgery for herniated disc. Past Anesthesia/Blood Transfusion Reactions: No Reported Reaction Additional Past Anesthesia/Blood Transfusion Reaction / Comment(s): Pt states he received blood as a d/t ABO incompatability. Past Psychological History: No Psychological Hx Reported Past Alcohol Use History: Occasional Past Drug Use History: None Reported - Past Family History Mother Family Medical History: Cancer Additional Family Medical History / Comment(s): Mother of complication r/t colon cancer. Father Family Medical History: Coronary Artery Disease (CAD) Additional Family Medical History / Comment(s): Father had a coronary stent. General Exam - General Exam Comments Initial Comments: General: Appears in no acute distress. HEAD: Normal with no signs of head trauma. EYES: PERRLA, EOMI, conjunctiva normal, no discharge. Pulls are 3 mm and equal bilaterally. ENT: Hearing grossly intact, normal oropharynx. RESPIRATORY: Clear breath sounds bilaterally. No wheezes, rales, or rhonchi. C/V: Regular rate and rhythm. S1 and S2 auscultated, no edema, peripheral pulses 2+ and intact throughout ABD: Abd is soft, nontender, nondistended EXT: Normal range of motion, no obvious deformity SKIN: No rashes or lesions observed on exposed skin. NEURO: Alert and oriented x 4. NIH of 2-3. Limitations: no limitations Course Vital Signs 12/04/23 11:06 Temperature 97.8 F Pulse Rate 98 Respiratory 16 Rate Blood Pressure 107/61 O2 Sat by Pulse 99 Oximetry Medical Decision Making - Medical Decision Making Was pt. sent in by a medical professional or institution (, PA, AIR POLLUTION COMPLIANCE INSPECTOR, urgent care, hospital, or skilled nursing...) When possible be specific @ -No Did you speak to anyone other than the patient for history (EMS, parent, family, police, friend...)? What history was obtained from this source @ -I spoke with patient's who assisted with patient's recent past medical history. Did you review nursing and triage notes (agree or disagree)? Why? @ -I reviewed and agree with nursing and triage notes Were old charts reviewed (outside hosp., previous admission, EMS record, old EKG, old radiological studies, urgent care reports/EKG's, skilled nursing records)? Report findings @ -Old charts reviewed Differential Diagnosis (chest pain, altered mental status, abdominal pain women, abdominal pain men, vaginal bleeding, weakness, fever, dyspnea, syncope, headache, dizziness, GI bleed, back pain, seizure, CVA, palpatations, mental health, musculoskeletal)? @ -Differential CVA Ischemic stroke, hemorrhagic stroke, brain tumor, atypical migraine, Wernicke's encephalopathy, seizure, multiple sclerosis, meningitis, encephalitis, hypog lycemia, Guillain-Santizo, electrolytes disturbance, myasthenia gravis.... This is not meant to be an all-inclusive list EKG interpreted by me (3pts min.). @ -As above X-rays interpreted by me (1pt min.). @ -Chest x-ray reveals no obvious acute cardiopulmonary process. CT interpreted by me (1pt min.). @ -CT brain reveals no obvious acute intracranial process. U/S interpreted by me (1pt. min.). @ -None done What testing was considered but not performed or refused? (CT, X-rays, U/S, labs)? Why? @ -None What meds were considered but not given or refused? Why? @ -None Did you discuss the management of the patient with other professionals (professionals i.e. , PA, AIR POLLUTION COMPLIANCE INSPECTOR, lab, RT, psych nurse, social services technician, mediation commissioner, teacher, youth corrections officer, showcase trimmer)? Give summary @ -I discussed with the admitting team, Dr. Hussein who accepted the admission. Was smoking cessation discussed for >3mins.? @ -No Was critical care preformed (if so, how long)? @ -No Were there social determinants of health that impacted care today? How? (Homelessness, low income, unemployed, alcoholism, drug addiction, transportation, low edu. Level, literacy, decrease access to med. care, shelter, rehab)? @ -No Was there de-escalation of care discussed even if they declined (Discuss DNR or withdrawal of care, Hospice)? DNR status @ -No What co-morbidities impacted this encounter? (DM, HTN, Smoking, COPD, CAD, Ca ncer, CVA, ARF, Chemo, Hep., AIDS, mental health diagnosis, sleep apnea, morbid obesity)? @ -None Was patient admitted / discharged? Hospital course, mention meds given and route, prescriptions, significant lab abnormalities, going to OR and other pertinent info. @ -Presents with strokelike symptoms. NIH is approximately 2-3 for right-sided facial droop has been present for 5 days and slightly improving. Last known well was over 5 days ago. We will work him up however he does not meet criteria for stroke activation at this time. Vital signs are within acceptable limits. Will obtain stroke workup. EKG shows no signs of acute ischemia. Laboratory studies within acceptable limits. Urine studies still pending. CT imaging shows no obvious acute intracranial process. Chest x-ray shows no obvious acute cardiopulmonary process. On reevaluation, NIH is unchanged. He will be admitted for neuro eval. He was given 325 mg of aspirin. Patient in agreement this plan. I spoke with the admitting team, Dr. Hussein who accepted the admission. Neurology consulted. Undiagnosed new problem with uncertain prognosis? @ -No Drug Therapy requiring intensive monitoring for toxicity (Heparin, Nitro, Insulin, Cardizem)? @ -No Were any procedures done? @ -No Diagnosis/symptom? @ -CVA Acute, or Chronic, or Acute on Chronic? @ -Acute Uncomplicated (without systemic symptoms) or Complicated (systemic symptoms)? @ -Complicated Side effects of treatment? @ -No Exacerbation, Progression, or Severe Exacerbation? @ -No Poses a threat to life or bodily function? How? (Chest pain, [place], [place], pneumonia, PE, COPD, DKA, ARF, appy, cholecystitis, CVA, Diverticulitis, Homicidal, Suicidal, threat to staff... and all critical care pts) @ -Yes - Lab Data Result diagrams: 12/04/23 11:40 12/04/23 11:40 Lab Results 12/04/23 12/04/23 12/04/23 Range/Units 11:32 11:40 11:40 WBC 6.9 (3.8-10.6) k/uL RBC 4.75 (4.30-5.90) m/uL Hgb 13.5 (13.0-17.5) gm/dL Hct 39.7 (39.0-53.0) % MCV 83.7 (80.0-100.0) fL MCH 28.4 (25.0-35.0) pg MCHC 33.9 (31.0-37.0) g/dL RDW 14.2 (11.5-15.5) % Plt Count 223 (150-450) k/uL MPV 8.3 Neutrophils % 70 % Lymphocytes % 19 % Monocytes % 7 % Eosinophils % 2 % Basophils % 1 % Neutrophils # 4.8 (1.3-7.7) k/uL Lymphocytes # 1.3 (1.0-4.8) k/uL Monocytes # 0.5 (0-1.0) k/uL Eosinophils # 0.1 (0-0.7) k/uL Basophils # 0.0 (0-0.2) k/uL PT 10.7 (10.0-12.5) sec INR 1.0 (<1.2) APTT 22.8 (22.0-30.0) sec Sodium (137-145) mmol/L Potassium (3.5-5.1) mmol/L Chloride (98-107) mmol/L Carbon Dioxide (22-30) mmol/L Anion Gap mmol/L BUN (9-20) mg/dL Creatinine (0.66-1.25) mg/dL Est GFR (CKD-EPI)AfAm (>60 ml/min/1.73 sqM) Est GFR (CKD-EPI)NonAf (>60 ml/min/1.73 sqM) Glucose (74-99) mg/dL POC Glucose (mg/dL) 157 H (70-110) mg/dL POC Glu Respiratory Practitioner ID Jeremiah Mason Calcium (8.4-10.2) mg/dL Total Bilirubin (0.2-1.3) mg/dL AST (17-59) U/L ALT (4-49) U/L Alkaline Phosphatase (38-126) U/L Ammonia (<30) umol/L Creatine Kinase (55-170) U/L Total Protein (6.3-8.2) g/dL Albumin (3.5-5.0) g/dL Urine Color Urine Appearance (Clear) Urine pH (5.0-8.0) Ur Specific [place] (1.001-1.035) Urine Protein (Negative) Urine Glucose (UA) (Negative) Urine Ketones (Negative) Urine Blood (Negative) Urine Nitrite (Negative) Urine Bilirubin (Negative) Urine Urobilinogen (<2.0) mg/dL Ur Leukocyte Esterase (Negative) Urine Opiates Screen (NotDetected) Ur Oxycodone Screen (NotDetected) Urine Methadone Screen (NotDetected) Ur Barbiturates Screen (NotDetected) U Tricyclic Antidepress (NotDetected) Ur Phencyclidine Scrn (NotDetected) Ur Amphetamines Screen (NotDetected) U Methamphetamines Scrn (NotDetected) U Benzodiazepines Scrn (NotDetected) Urine Cocaine Screen (NotDetected) U Marijuana (THC) Screen (NotDetected) 12/04/23 12/04/23 12/04/23 Range/Units 11:40 11:40 11:40 WBC (3.8-10.6) k/uL RBC (4.30-5.90) m/uL Hgb (13.0-17.5) gm/dL Hct (39.0-53.0) % MCV (80.0-100.0) fL MCH (25.0-35.0) pg MCHC (31.0-37.0) g/dL RDW (11.5-15.5) % Plt Count (150-450) k/uL MPV Neutrophils % % Lymphocytes % % Monocytes % % Eosinophils % % Basophils % % Neutrophils # (1.3-7.7) k/uL Lymphocytes # (1.0-4.8) k/uL Monocytes # (0-1.0) k/uL Eosinophils # (0-0.7) k/uL Basophils # (0-0.2) k/uL PT (10.0-12.5) sec INR (<1.2) APTT (22.0-30.0) sec Sodium 139 (137-145) mmol/L Potassium 4.6 (3.5-5.1) mmol/L Chloride 106 (98-107) mmol/L Carbon Dioxide 25 (22-30) mmol/L Anion Gap 8 mmol/L BUN 23 H (9-20) mg/dL Creatinine 0.85 (0.66-1.25) mg/dL Est GFR (CKD-EPI)AfAm >90 (>60 ml/min/1.73 sqM) Est GFR (CKD-EPI)NonAf >90 (>60 ml/min/1.73 sqM) Glucose 165 H (74-99) mg/dL POC Glucose (mg/dL) (70-110) mg/dL POC Glu Respiratory Practitioner ID Calcium 9.3 (8.4-10.2) mg/dL Total Bilirubin 0.6 (0.2-1.3) mg/dL AST 45 (17-59) U/L ALT 30 (4-49) U/L Alkaline Phosphatase 103 (38-126) U/L Ammonia 15 (<30) umol/L Creatine Kinase 79 (55-170) U/L Total Protein 6.6 (6.3-8.2) g/dL Albumin 4.0 (3.5-5.0) g/dL Urine Color Colorless Urine Appearance Clear (Clear) Urine pH 5.0 (5.0-8.0) Ur Specific [place] 1.033 (1.001-1.035) Urine Protein Negative (Negative) Urine Glucose (UA) 4+ H (Negative) Urine Ketones Negative (Negative) Urine Blood Negative (Negative) Urine Nitrite Negative (Negative) Urine Bilirubin Negative (Negative) Urine Urobilinogen <2.0 (<2.0) mg/dL Ur Leukocyte Esterase Negative (Negative) Urine Opiates Screen Not Detected (NotDetected) Ur Oxycodone Screen Not Detected (NotDetected) Urine Methadone Screen Not Detected (NotDetected) Ur Barbiturates Screen Not Detected (NotDetected) U Tricyclic Antidepress Not Detected (NotDetected) Ur Phencyclidine Scrn Not Detected (NotDetected) Ur Amphetamines Screen Detected H (NotDetected) U Methamphetamines Scrn Detected H (NotDetected) U Benzodiazepines Scrn Not Detected (NotDetected) Urine Cocaine Screen Not Detected (NotDetected) U Marijuana (THC) Screen Not Detected (NotDetected) - EKG Data -: EKG Interpreted by Me EKG Comments: 12-lead Electrocardiogram Interpretation Note EKG was reviewed and interpreted by myself. 12-lead ECG performed at 1118 is interpreted by me as revealing intraventricular conduction delay with chronic T wave inversions in the inferior leads. At a rate of 90 beats per minute. Right axis deviation. FL interval is 195 ms, QRS duration is 162 ms, QTc is 457 ms.. There were no obvious acute ST or T wave abnormalities to suggest myocardial ischemia or injury. R wave progression across the precordium was delayed. By my interpretation this EKG is non-diagnostic for acute ischemia. Compared with EKGs from 2019 which appear largely similar. Disposition Clinical Impression: Cerebrovascular accident (CVA) Disposition: ADMITTED IP TO THIS HOSP Condition: Stable Referrals: Jessica Martinez MD [Primary Care Provider] - 1-2 days Time of Disposition: 14:28
[2023-12-04] MEDS ORDERED: DEXTROSE 50% SYRINGE 50 ML IVP PRN ×2 (14:50)
[2023-12-04 18:22] LABS: Glucose,Whole Blood 189 mg/dL (70-110)
[2023-12-04] MEDS: carvediloL 6.25 MG TAB PO SCH (18:29)
[2023-12-04] MEDS: ASPIRIN 325 MG TAB PO STA (18:29)
[2023-12-04] MEDS: INSULIN ASPART (NovoLOG) 100 UNIT/ML VIAL SQ SCH (18:30)
[2023-12-04] MEDS: ATORVASTATIN 40 MG TAB PO SCH (23:46)
[2023-12-04] MEDS: HEPARIN SODIUM,PORCINE 5,000 UNIT/ML 1 ML VIAL SQ SCH (23:46)
[2023-12-04] MEDS: LOSARTAN 25 MG TAB PO SCH (23:46)
--- NOTE | 2023-12-05 00:35 | P.HPIM ---
History of Present Illness H&P Date: 12/04/23 Chief Complaint: Facial droop Patient is a 53-year-old male with a past medical history of chronic CHF with systolic dysfunction ejection fraction 20%, nonischemic cardiomyopathy diabetes type 2, bilateral lower extremity peripheral neuropathy, osteoarthritis and chronic back pain presents to ER with complaints of facial droop. Patient started having symptoms for the past 5 days. Patient does have right facial droop and dysarthria. He went to see his family practice md today due to his chronic CHF and valvular abnormalities. Patient was recommended to go to ER for further evaluation of the facial droop. Otherwise patient denied any complaints of headache. No complaints of upper or lower extremity weakness. Denied any prior history of CVA. Denies any fever or chills. No recent illnesses. No chest pain or shortness of breath. CT head showed no acute intracranial process. EKG showed sinus rhythm with intraventricular conduction delay. Laboratory data showed sodium 139 potassium 4.6 chloride 106 bicarb is 25 BUN 23 and creatinine 0.85, blood sugar 165. Liver and units are not elevated. Urinalysis showed 4+ glucose and is negative for infection UDS is positive for amphetamines and methamphetamines. Review of Systems Constitutional: Patient denies any fever or chills . No generalized weakness or weight loss. Abdomen: Patient denied nausea vomiting and diarrhea and abdominal pain. Cardiovascular: Patient denies any chest pain or short of breath no palpitations. Respiratory: patient denied any cough is from production. No shortness of breath Neurologic: Patient denied any numbness or tingling headache. Right facial d anupam and dysarthria Musculoskeletal: Patient denies any complaints of joint swelling or deformity. Skin: Negative Psychiatric: Negative Endocrine: No heat or cold intolerance. No recent weight gain. Genitourinary: No dysuria or hematuria. All other 14 point ROS negative except the above Past Medical History Past Medical History: Heart Failure, Diabetes Mellitus, GERD/Reflux, Osteoarthritis (OA), Renal Disease Additional Past Medical History / Comment(s): NIDDM type II, neuropathy bilateral feet, R leg nerve damage-cannot pick foot up very well, recent vertigo and lower leg edema, generalized arthritis, pt states his labs for kidney function have been somewhat elevated. History of Any Multi-Drug Resistant Organisms: None Reported Past Surgical History: Back Surgery Additional Past Surgical History / Comment(s): Lower back surgery for herniated disc. Past Anesthesia/Blood Transfusion Reactions: No Reported Reaction Additional Past Anesthesia/Blood Transfusion Reaction / Comment(s): Pt states he received blood as a d/t ABO incompatability. Past Psychological History: No Psychological Hx Reported Past Alcohol Use History: Occasional Past Drug Use History: None Reported - Past Family History Mother Family Medical History: Cancer Additional Family Medical History / Comment(s): Mother of complication r/t colon cancer. Father Family Medical History: Coronary Artery Disease (CAD) Additional Family Medical History / Comment(s): Father had a coronary stent. Medications and Allergies Home Medications Medication Instructions Recorded Confirmed Type Nitroglycerin Sl Tabs [Nitrostat] 0.4 mg SUBLINGUAL Q5M PRN #30 tab 03/09/19 12/04/23 Rx Empagliflozin [Jardiance] 10 mg PO DAILY 12/04/23 12/04/23 History Furosemide [Lasix] 20 mg PO DAILY 12/04/23 12/04/23 History Insulin Glargine,Hum.rec.anlog 20 unit SQ BID 12/04/23 12/04/23 History [Basaglar Kwikpen U-100] Losartan [Cozaar] 25 mg PO HS 12/04/23 12/04/23 History Rosuvastatin [Crestor] 20 mg PO HS 12/04/23 12/04/23 History Spironolactone [Aldactone] 25 mg PO DAILY 12/04/23 12/04/23 History carvediloL [Coreg] 6.25 mg PO BID 12/04/23 12/04/23 History Allergies Allergy/AdvReac Type Severity Reaction Status Date / Time No Known Allergies Allergy Verified 12/04/23 13:35 Physical Exam Vitals: Vital Signs Temp Pulse Resp BP Pulse Ox 12/04/23 19:26 86 16 103/68 97 12/04/23 17:30 82 20 114/84 95 12/04/23 16:30 76 18 98/67 97 12/04/23 15:30 81 16 114/88 97 12/04/23 14:30 75 17 113/76 98 12/04/23 13:30 75 20 112/79 97 12/04/23 12:30 85 22 127/84 97 12/04/23 11:06 97.8 F 98 16 107/61 99 Intake and Output 12/04/23 12/04/23 12/04/23 06:59 14:59 22:59 Other: Weight 86.183 kg PHYSICAL EXAMINATION: Patient is lying in the bed comfortably, no acute distress, awake alert and oriented.. HEENT: Normocephalic. Neck is supple. Pupils reactive. Nostrils clear. Oral cavity is moist. Neck reveals no JVD, carotid bruits, or thyromegaly. CHEST EXAMINATION: Trachea is central. Symmetrical expansion. Lung morrow clear to auscultation and percussion. CARDIAC: Normal S1, S2 with no gallops. No murmurs ABDOMEN: Soft. Bowel sounds normal. No organomegaly. No abdominal bruits. Extremities: reveal no edema. No clubbing or cyanosis Neurologically awake, alert, oriented x3. Patient does have right facial droop. No ptosis. Bilateral upper and lower extremity motor strength 5 out of 5. Skin: No rash or skin lesions. Psychiatric: Coperative. Nonsuicidal Musculoskeletal: No joint swelling or deformity. Normal range of motion. Results CBC & Chem 7: 12/05/23 07:33 12/05/23 07:33 Labs: Abnormal Lab Results - Last 24 Hours (Table) 12/04/23 12/04/23 12/04/23 Range/Units 11:32 11:40 11:40 BUN 23 H (9-20) mg/dL Glucose 165 H (74-99) mg/dL POC Glucose (mg/dL) 157 H (70-110) mg/dL Urine Glucose (UA) 4+ H (Negative) Ur Amphetamines Screen Detected H (NotDetected) U Methamphetamines Scrn Detected H (NotDetected) 12/04/23 Range/Units 18:19 BUN (9-20) mg/dL Glucose (74-99) mg/dL POC Glucose (mg/dL) 189 H (70-110) mg/dL Urine Glucose (UA) (Negative) Ur Amphetamines Screen (NotDetected) U Methamphetamines Scrn (NotDetected) Thrombosis Risk Factor Assmnt - DVT/VTE Prophylaxis DVT/VTE Prophylaxis: Pharmacologic Prophylaxis ordered Assessment and Plan Assessment: Right facial droop and dysarthria likely due to acute CVA. Symptoms started 5 days back. Chronic CHF with systolic dysfunction LVEF fraction 20% with global hypokinesia. Prior history of cardiac catheterization nonobstructive in 2019. Moderate MR and moderate TR Diabetes type 2 insulin-dependent Nonischemic cardiomyopathy Osteoarthritis GERD Bilateral peripheral neuropathy diabetic DVT prophylaxis with heparin subcu Plan: Patient will be continued on telemetry. Continue with neurochecks. CT head is negative for acute CVA Neurology was consulted for further evaluation. Follow-up A1c and TSH levels. Continue with insulin regimen and titrate dose as needed Start back on home blood pressure medications and continue with aspirin and statins. Follow-up closely. Time with Patient: Greater than 30
[2023-12-05 07:19] LABS: Glucose,Whole Blood 120 mg/dL (70-110)
[2023-12-05] MEDS: FUROSEMIDE 20 MG TAB PO SCH (08:14)
[2023-12-05] MEDS: DAPAGLIFLOZIN PROPANEDIOL 5 MG TABLET PO SCH (08:14)
[2023-12-05] MEDS: SPIRONOLACTONE 25 MG TAB PO SCH (08:14)
[2023-12-05 08:25] LABS: Basophils # (A) 0.1 k/uL (0-0.2); Basophils % (A) 1 %; Eosinophils # (A) 0.2 k/uL (0-0.7); Eosinophils % (A) 3 %; HGB 13.2 gm/dL (13.0-17.5); Lymphocytes % (A) 31 %; MCH 27.9 pg (25.0-35.0); MCV 84.3 fL (80.0-100.0); Mean Platelet Volume 8.3; Monocytes # (A) 0.4 k/uL (0-1.0); Monocytes % (A) 5 %; Neutrophils # (A) 3.8 k/uL (1.3-7.7); Neutrophils % (A) 58 %; Platelet Count 223 k/uL (150-450); RBC 4.74 m/uL (4.30-5.90); RDW 14.1 % (11.5-15.5); WBC 6.6 k/uL (3.8-10.6)
[2023-12-05 08:48] LABS: African American GFR (CKD) >90 (>60 ml/min/1.73 sqM); Anion Gap 8 mmol/L; Blood Urea Nitrogen 20 mg/dL (9-20); Calcium 8.8 mg/dL (8.4-10.2); Carbon Dioxide 23 mmol/L (22-30); Chloride 108 mmol/L (98-107); Glucose 143 mg/dL (74-99); Non-African American GFR(CKD) >90 (>60 ml/min/1.73 sqM); Potassium 4.3 mmol/L (3.5-5.1); Sodium 139 mmol/L (137-145)
--- NOTE | 2023-12-05 13:11 | P.CNNES ---
History of Present Illness Consult date: 12/05/23 Requesting physician: Erwin Jenkins Reason for Consult: cva History of Present Illness: This is a 53-year-old gentleman with history of heart failure who presents emergency department because of right facial droop slurred speech and speech difficulty. He stated that his symptoms began about a week ago and then he was evaluated by his table worker as an outpatient and the date notified him that he needs to come to the emergency department for further evaluation. He stated that he noticed the right facial droop and slurring of the speech and the he felt his speech was off in which he knew what he wants to say but they're coming out wrong. He felt the right facial droop that has improved but the slurring the speech and speech difficulty is still present. He denies any history of stroke. Denies any tobacco use, illicit drug use or alcohol use. Patient is not on any antiplatelets at home. Some other workup during his hospital visit consisted of: Most recent serum glucose is 143. Sodium is 139. Hemoglobin A1c is 9.2. Calcium is 8.8. TSH is 2.280 Urine drug screen is amphetamine and methamphetamine are positive. CT of the head is reported as no acute intracranial process. I personally reviewed the CT and agree with the report. EKG is reported as sinus rhythm. Intraventricular conduction delay. Abnormal EKG. Review of Systems Review of system: 10 point system is reviewed and positive and negative as per HPI. Past Medical History Past Medical History: Heart Failure, Diabetes Mellitus, GERD/Reflux, Osteoarthritis (OA), Renal Disease Additional Past Medical History / Comment(s): NIDDM type II, neuropathy bilateral feet, R leg nerve damage-cannot pick foot up very well, recent vertigo and lower leg edema, generalized arthritis, pt states his labs for kidney function have been somewhat elevated. History of Any Multi-Drug Resistant Organisms: None Reported Past Surgical History: Back Surgery Additional Past Surgical History / Comment(s): Lower back surgery for herniated disc. Past Anesthesia/Blood Transfusion Reactions: No Reported Reaction Additional Past Anesthesia/Blood Transfusion Reaction / Comment(s): Pt states he received blood as a d/t ABO incompatability. Past Psychological History: No Psychological Hx Reported Past Alcohol Use History: Occasional Past Drug Use History: None Reported - Past Family History Mother Family Medical History: Cancer Additional Family Medical History / Comment(s): Mother of complication r/t colon cancer. Father Family Medical History: Coronary Artery Disease (CAD) Additional Family Medical History / Comment(s): Father had a coronary stent. Medications and Allergies Home Medications Medication Instructions Recorded Confirmed Type Nitroglycerin Sl Tabs [Nitrostat] 0.4 mg SUBLINGUAL Q5M PRN #30 tab 03/09/19 12/04/23 Rx Empagliflozin [Jardiance] 10 mg PO DAILY 12/04/23 12/04/23 History Furosemide [Lasix] 20 mg PO DAILY 12/04/23 12/04/23 History Insulin Glargine,Hum.rec.anlog 20 unit SQ BID 12/04/23 12/04/23 History [Basaglar Kwikpen U-100] Losartan [Cozaar] 25 mg PO HS 12/04/23 12/04/23 History Rosuvastatin [Crestor] 20 mg PO HS 12/04/23 12/04/23 History Spironolactone [Aldactone] 25 mg PO DAILY 12/04/23 12/04/23 History carvediloL [Coreg] 6.25 mg PO BID 12/04/23 12/04/23 History Allergies Allergy/AdvReac Type Severity Reaction Status Date / Time No Known Allergies Allergy Verified 12/04/23 13:35 Physical Examination - Vital Signs Vital Signs: Vital Signs Pulse Resp BP Pulse Ox 12/05/23 11:32 16 12/05/23 07:56 80 18 99/69 96 12/05/23 06:00 68 16 107/68 94 L 12/05/23 05:00 70 16 115/83 96 12/05/23 04:00 70 16 106/77 98 12/05/23 03:00 83 16 107/83 98 12/05/23 02:00 73 18 108/72 98 12/05/23 01:00 74 18 114/77 98 12/05/23 00:00 83 16 102/73 97 12/04/23 23:00 78 18 106/69 98 12/04/23 22:00 79 18 107/75 97 12/04/23 21:00 81 16 105/69 97 12/04/23 20:00 89 16 121/85 97 12/04/23 19:26 86 16 103/68 97 12/04/23 17:30 82 20 114/84 95 12/04/23 16:30 76 18 98/67 97 12/04/23 15:30 81 16 114/88 97 12/04/23 14:30 75 17 113/76 98 12/04/23 13:30 75 20 112/79 97 GENERAL: The patient is lying in bed and is not in acute distress. NEUROLOGICAL: Higher mental function: The patient is awake, alert, oriented to self, place and time. Patient is following commands. No aphasia and no neglect. Cranial nerves: The pupils are round, equal and reactive to light and accommodation. Visual morrow are full to confrontation throughout. Extraocular movement is intact no nystagmus is noted. Facial sensation is normal to touch throughout. The facial strength is normal throughout. Hearing is normal bilaterally to hand rub. Tongue is midline and moved [id number] without any difficulty. Subtle dysarthria is noted. Shoulder shrug is normal bilaterally. Motor: The strength is 5 over 5 throughout. Normal tone and bulk. Cerebellum: Normal finger to nose heel to chin bilaterally. Sensation: Sensation is normal to touch throughout. Reflexes (right/left): 2+ throughout. Plantars are downgoing bilaterally. Results - Laboratory Findings CBC and BMP: 12/05/23 07:33 12/05/23 07:33 Abnormal Lab Findings: Abnormal Labs 12/04/23 12/04/23 12/04/23 11:32 11:40 11:40 Chloride BUN 23 H Glucose 165 H POC Glucose (mg/dL) 157 H Hemoglobin A1c Urine Glucose (UA) 4+ H Ur Amphetamines Screen Detected H U Methamphetamines Scrn Detected H 12/04/23 12/05/23 12/05/23 18:19 07:17 07:33 Chloride BUN Glucose POC Glucose (mg/dL) 189 H 120 H Hemoglobin A1c 9.2 H Urine Glucose (UA) Ur Amphetamines Screen U Methamphetamines Scrn 12/05/23 07:33 Chloride 108 H BUN Glucose 143 H POC Glucose (mg/dL) Hemoglobin A1c Urine Glucose (UA) Ur Amphetamines Screen U Methamphetamines Scrn Assessment and Plan Assessment: This is a 53-year-old gentleman who presents per his outpatient cardiology request because the patient has noticed that he's having the right facial weakness, dysarthria and expressive aphasia for the past 1 week. Patient feels the facial droop has resolved but continues to have expressive aphasia and dysarthria. CT of the head is unremarkable for acute or subacute stroke. Patient urine drug screen is positive for amphetamine and methamphetamine but he denies any drug use and denies being on those medication. Subacute dysarthria, expressive aphasia and transit facial droop: Rule out subacute stroke not seen on the as CT of the head. If it's a large stroke unex pected the stroke changes on the CT which was unremarkable so far. Uncontrolled diabetes mellitus and the hemoglobin A1c is 9.2 Positive amphetamine and methamphetamine on the urine drug screen the patient denies being on any dose medication or drug use. History of Heart failure Plan: I ordered MRI of the brain, carotid duplex, 2-D echo. Lipid panels orders pending I started the patient on aspirin 325 daily. He was given aspirin 325 once in the ED. He was on any antiplatelets prior to this. Patient is on Lipitor 40 mg daily at bedtime Continue neuro checks Cardiac monitoring PT OT and also appear consulted We'll defer the rest of the medical management to primary team For DVT prophylaxis the patient is on subcu heparin 5000 units every 8 hours. The plan was discussed with the patient. Thank you for the consultation Time with Patient: Greater than 30
[2023-12-05] MEDS: ASPIRIN 325 MG TAB PO SCH (15:03)
[2023-12-05 16:36] LABS: Chol/HDL Ratio 6.09 Ratio; LDL Cholesterol,Calculated 100.6 mg/dL (0.0-131.0)
[2023-12-05 16:57] LABS: Glucose,Whole Blood 174 mg/dL (70-110)
[2023-12-05 21:05] LABS: Glucose,Whole Blood 144 mg/dL (70-110)
[2023-12-05] MEDS: ZOLPIDEM 5 MG TAB PO ONE (23:13)
[2023-12-06 06:30] LABS: Glucose,Whole Blood 123 mg/dL (70-110)
[2023-12-06 09:03] LABS: African American GFR (CKD) >90 (>60 ml/min/1.73 sqM); Anion Gap 9 mmol/L; Blood Urea Nitrogen 23 mg/dL (9-20); Calcium 8.9 mg/dL (8.4-10.2); Carbon Dioxide 21 mmol/L (22-30); Chloride 107 mmol/L (98-107); Glucose 135 mg/dL (74-99); Non-African American GFR(CKD) >90 (>60 ml/min/1.73 sqM); Potassium 4.4 mmol/L (3.5-5.1); Sodium 137 mmol/L (137-145)
--- NOTE | 2023-12-06 09:19 | US ---
EXAMINATION TYPE: US carotid duplex BILAT DATE OF EXAM: 12/05/2023 COMPARISON: NONE CLINICAL INDICATION: Male, 53 years old with history of Right facial droop; TECHNIQUE: Carotid duplex ultrasound examination. Indirect Doppler criteria was utilized. FINDINGS: EXAM MEASUREMENTS: RIGHT: Peak Systolic Velocity (PSV) cm/sec ----- Right CCA: 62.5 ----- Right ICA: 87.0 ----- Right ECA: 85.3 ICA/CCA ratio: 1.4 RIGHT: End Diastole cm/sec ----- Right CCA: 18.0 ----- Right ICA: 28.4 ----- Right ECA: 16.5 LEFT: Peak Systolic Velocity (PSV) cm/sec ----- Left CCA: 60.6 ----- Left ICA: 74.5 ----- Left ECA: 88.8 ICA/CCA ratio: 1.2 LEFT: End Diastole cm/sec ----- Left CCA: 25.1 ----- Left ICA: 27.0 ----- Left ECA: 15.7 VERTEBRALS (direction of flow): Right Vertebral: Antegrade Left Vertebral: Antegrade Rhythm: Normal No significant stenosis IMPRESSION: Less than 50% stenosis of the bilateral carotid bifurcations. Criteria for Assigning % of Stenosis / Diameter reduction (Estimation based on the indirect measurements of the internal carotid artery velocities (ICA PSV). 1. Normal (no stenosis)=ICA PSV < 125 cm/s: ratio < 2.0: ICA EDV<40 cm/s. 2. Less than 50% stenosis=ICA PSV < 125 cm/s: ratio < 2.0: ICA EDV<40 cm/s. 3. 50 to 69% stenosis=ICA PSV of 125 to 230 cm/s: ration 2.0 ? 4.0: ICA EDV 40-100 cm/s. 4. Greater than 70% stenosis to near occlusion= ICA PSV > 230 cm/s: ratio > 4.0: ICA EDV > 100 cm/s. 5. Near occlusion= ICA PSV velocities may be low or undetectable: variable ratio and ICA EDV. 6. Total occlusion=unable to detect flow.
--- NOTE | 2023-12-06 09:33 | CA ---
Transthoracic Echo Report Name: Erwin Magallanes Age: 53 Gender: M : 1970 Exam Date: 12/05/2023 14:24 Exam Location: [facility] Ht (in): 71 Wt (lb): 190 Ordering Physician: Rashad Murcia MD Attending/Referring Phys: [employer] Allie Valenzuela RDCS Procedure CPT: Indications: stroke Cardiac Hx: Technical Quality: Good Contrast 1: Agitated Saline Total Dose (mL): 9 Contrast 2: Total Dose (mL): MEASUREMENTS (Male / Female) Normal Values 2D ECHO LV Diastolic Diameter PLAX 6.6 cm 4.2 - 5.9 / 3.9 - 5.3 cm LV Systolic Diameter PLAX 6.4 cm IVS Diastolic Thickness 0.8 cm 0.6 - 1.0 / 0.6 - 0.9 cm LVPW Diastolic Thickness 1.0 cm 0.6 - 1.0 / 0.6 - 0.9 cm LV Relative Wall Thickness 0.3 RV Internal Dim ED PLAX 3.5 cm LA Systolic Diameter LX 4.1 cm 3.0 - 4.0 / 2.7 - 3.8 cm LV Diastolic Volume MOD 4C 221.2 cm??? LV Systolic Volume MOD 4C 171.6 cm??? LV Ejection Fraction MOD 4C 22.4 % LV Cardiac Index MOD 4C 1972.5 cm???/min???m??? LV Diastolic Length 4C 8.2 cm LV Systolic Length 4C 8.0 cm LV Diastolic Volume MOD 2C 191.2 cm??? LV Systolic Volume MOD 2C 150.6 cm??? LV Ejection Fraction MOD 2C 21.2 % LV Cardiac Index MOD 2C 1613.1 cm???/min???m??? LV Diastolic Length 2C 8.1 cm LV Systolic Length 2C 7.7 cm LA Volume 102.7 cm??? 18 - 58 / 22 - 52 cm??? LA Volume Index 49.1 cm???/m??? 16 - 28 cm???/m??? M-MODE Aortic Root Diameter MM 3.3 cm DOPPLER AV Peak Velocity 101.0 cm/s AV Peak Gradient 4.1 mmHg MV Area PHT 5.9 cm??? TR Peak Velocity 301.2 cm/s TR Peak Gradient 36.3 mmHg Right Ventricular Systolic Press 46.3 mmHg FINDINGS Left Ventricle Left ventricular ejection fraction is estimated at 20 %. Moderately increased left ventricular diastolic diameter. Left ventricular cavity size normal. Severely reduced global left ventricular systolic function. Global left ventricular hypokinesis. Right Ventricle Mild right ventricular dilatation. Moderate pulmonary hypertension. Right Atrium Normal right atrial size. Negative agitated saline bubble study for right to left shunt. Left Atrium Mildly increased left atrial diameter. Severely increased left atrial volume. Mildly increased left atrial area. Mitral Valve Structurally normal mitral valve. Moderate mitral regurgitation. Aortic Valve Trileaflet aortic valve. No aortic valve stenosis or regurgitation. Tricuspid Valve Structurally normal tricuspid valve. Mild tricuspid regurgitation. Pulmonic Valve Pulmonic valve not well visualized. No pulmonic regurgitation. Pericardium No pericardial effusion. Aorta Normal size aortic root and proximal ascending aorta. CONCLUSIONS Severe LV dysfunction with an ejection fraction of 20% and severe LV dilation Moderate mitral regurgitation with a central jet Hyperdynamic interatrial septum. An echodensity versus artifact attached to the interatrial septum on the left atrial side was identified on subcostal view. Previewed by: Dr. Juni Landrum MD (Electronically Signed) Final Date: 06 December 2023 09:32
--- NOTE | 2023-12-06 10:58 | P.PN ---
Subjective Progress Note Date: 12/05/23 Patient is a 53-year-old male with a past medical history of chronic CHF with systolic dysfunction ejection fraction 20%, nonischemic cardiomyopathy diabetes type 2, bilateral lower extremity peripheral neuropathy, osteoarthritis and chronic back pain presents to ER with complaints of facial droop. Patient started having symptoms for the past 5 days. Patient does have right facial droop and dysarthria. He went to see his manager appointment today due to his chronic CHF and valvular abnormalities. Patient was recommended to go to ER for further evaluation of the facial droop. Otherwise patient denied any complaints of headache. No complaints of upper or lower extremity weakness. Denied any prior history of CVA. Denies any fever or chills. No recent illnesses. No chest pain or shortness of breath. CT head showed no acute intracranial process. EKG showed sinus rhythm with intraventricular conduction delay. Laboratory data showed sodium 139 potassium 4.6 chloride 106 bicarb is 25 BUN 23 and creatinine 0.85, blood sugar 165. Liver and units are not elevated. Urinalysis showed 4+ glucose and is negative for infection UDS is positive for amphetamines and methamphetamines. 12/05/2023 Patient is currently lying in the bed. Awake alert and oriented x 3. Still having right facial droop and slurred speech is better. No complaints of headache. No nausea vomiting or abdominal pain or diarrhea. Patient has been afebrile. Laboratory data showed WC 6.6 hemoglobin 13.1 platelets 223 Sodium 139 potassium 4.3 chloride 108 bicarbonate 23 BUN 20 and creatinine 0.72 and blood sugar 143 and A1c level is 9.2 LDL 100.6. TSH 2.28 Patient was seen by neurology. Current medications reviewed. Objective - Vital Signs Vital signs: Vital Signs Temp 97.5 F L 12/05/23 16:00 Pulse 82 12/05/23 16:00 Resp 17 12/05/23 16:00 BP 108/72 12/05/23 16:00 Pulse Ox 99 12/05/23 16:00 FiO2 Intake & Output 12/05/23 12/05/23 12/06/23 06:59 18:59 06:59 Intake Total 360 Balance 360 Weight 86.183 kg Intake: Oral 360 Other: # Voids 1 - Exam PHYSICAL EXAMINATION: Patient is lying in the bed comfortably, no acute distress, awake alert and o riented.. HEENT: Normocephalic. Neck is supple. Pupils reactive. Nostrils clear. Oral cavity is moist. Neck reveals no JVD, carotid bruits, or thyromegaly. CHEST EXAMINATION: Trachea is central. Symmetrical expansion. Lung morrow clear to auscultation and percussion. CARDIAC: Normal S1, S2 with no gallops. No murmurs ABDOMEN: Soft. Bowel sounds normal. No organomegaly. No abdominal bruits. Extremities: reveal no edema. No clubbing or cyanosis Neurologically awake, alert, oriented x3. Patient does have right facial droop. No ptosis. Bilateral upper and lower extremity motor strength 5 out of 5. Skin: No rash or skin lesions. Psychiatric: Coperative. Nonsuicidal Musculoskeletal: No joint swelling or deformity. Normal range of motion. - Labs CBC & Chem 7: 12/05/23 07:33 12/06/23 07:41 Labs: Abnormal Lab Results - Last 24 Hours (Table) 12/05/23 12/05/23 12/05/23 Range/Units 07:17 07:33 07:33 Chloride 108 H (98-107) mmol/L Glucose 143 H (74-99) mg/dL POC Glucose (mg/dL) 120 H (70-110) mg/dL Hemoglobin A1c 9.2 H (<=6.0) % Triglycerides 266.00 H (0.00-149.00) mg/dL VLDL Cholesterol, Calc 53.20 H (5.00-40.00) mg/dL HDL Cholesterol 30.20 L (40.00-60.00) mg/dL 12/05/23 Range/Units 16:53 Chloride (98-107) mmol/L Glucose (74-99) mg/dL POC Glucose (mg/dL) 174 H (70-110) mg/dL Hemoglobin A1c (<=6.0) % Triglycerides (0.00-149.00) mg/dL VLDL Cholesterol, Calc (5.00-40.00) mg/dL HDL Cholesterol (40.00-60.00) mg/dL Assessment and Plan Assessment: Right facial droop and dysarthria likely due to acute CVA. Symptoms started 5 days back. Chronic CHF with systolic dysfunction LVEF fraction 20% with global hypokinesia. Patient was told due to viral infection. Prior history of cardiac catheterization nonobstructive in 2019. Moderate MR and moderate TR Diabetes type 2 insulin-dependent. Hyperglycemia uncontrolled with A1c 9.2 Nonischemic cardiomyopathy Osteoarthritis GERD Bilateral peripheral neuropathy diabetic DVT prophylaxis with heparin subcu Plan: Patient will be continued on telemetry. Continue with neurochecks. CT head is negative for acute CVA Neurology is on board.. A1c 9.2. And TSH level within normal limits.. Carotid duplex scan, 2D echocardiogram and MRI of the brain was ordered. Continue with insulin regimen and titrate dose as needed Started back on home blood pressure medications and continue with aspirin and statins. Follow-up closely. Time with Patient: Greater than 30
--- NOTE | 2023-12-06 11:07 | MR ---
EXAMINATION TYPE: MR brain wo con DATE OF EXAM: 12/06/2023 10:48 AM CLINICAL INDICATION:Male, 53 years old with history of stroke. right facial droop and dysarthria; PH H, Rt facial droop, dysarthria, stroke COMPARISON: 12/04/2023. TECHNIQUE: Multi planar, multi sequence imaging was performed through the brain including: T1, T2, In version recovery, Diffusion weighted imaging, and gradient echo imaging. No gadolinium was given. FINDINGS: Areas of restricted diffusion along the cortex of the precentral gyrus diffusion imaging 16 8 area more lateral on image 136 is also present and image 200. Scattered areas of abnormal increased frontal and right centrum semiovale and right parietal lobe with surrounding gliosis. The mahajan-white junctions, ventricular system, basal cisterns appear unremarkable. Midline structures show no abnorm ality. The susceptibility weighted images do not reveal any evidence for micro-hemorrhage. The bone marrow signal is within normal limits. Paranasal sinuses and mastoid air cells: No significant paranasal sinus disease. Visualized orbits: Orbital contents are intact. IMPRESSION: 1. Scattered Acute/subacute CVA involving the left posterior frontal lobe, and left temporal lobe. 2. Additional scattered remote injuries.
[2023-12-06 11:52] LABS: Glucose,Whole Blood 156 mg/dL (70-110)
[2023-12-06 12:18] VITALS: BMI 26.4
--- NOTE | 2023-12-06 13:37 | P.PN ---
Subjective Progress Note Date: 12/06/23 I have followed up with the patient and he feels about the same. Denies any new neurological issues. Objective - Vital Signs Vital signs: Vital Signs Temp 97.7 F 12/06/23 12:50 Pulse 82 12/06/23 12:50 Resp 16 12/06/23 12:50 BP 112/70 12/06/23 12:50 Pulse Ox 98 12/06/23 12:50 FiO2 Intake & Output 12/05/23 12/06/23 12/06/23 18:59 06:59 18:59 Intake Total 360 308 Balance 360 308 Weight 86.183 kg 86.183 kg Intake: IV 10 Invasive Line 1 10 Oral 360 298 Other: Voiding Method Toilet # Voids 1 2 - Exam GENERAL: The patient is lying in bed and is not in acute distress. NEUROLOGICAL: Higher mental function: The patient is awake, alert, oriented to self, place and time. Patient is following commands. No aphasia and no neglect. Cranial nerves: The pupils are round, equal and reactive to light and accommodation. Visual morrow are full to confrontation throughout. Extraocular movement is intact no nystagmus is noted. Facial sensation is normal to touch throughout. The facial strength is normal throughout. Hearing is normal bilaterally to hand rub. Tongue is midline and moved [id number] without any difficulty. Subtle dysarthria is noted. Shoulder shrug is normal bilaterally. Motor: The strength is 5 over 5 throughout. Normal tone and bulk. Cerebellum: Normal finger to nose heel to chin bilaterally. Sensation: Sensation is normal to touch throughout. Reflexes (right/left): 2+ throughout. Plantars are downgoing bilaterally. Some other workup during his hospital visit consisted of: Lipid panel triglycerides 266, cholesterol 184, LDLs 100, HDL 30 Most recent serum glucose is 143. Sodium is 139. Hemoglobin A1c is 9.2. Calcium is 8.8. TSH is 2.280 Urine drug screen is amphetamine and methamphetamine are positive. CT of the head is reported as no acute intracranial process. I personally reviewed the CT and agree with the report. EKG is reported as sinus rhythm. Intraventricular conduction delay. Abnormal EKG. Carotid duplex is reported as less than 50% stenosis of bilateral carotid bifurcation. 2-D echo was reported as severe left ventricle dysfunction with ejection fraction of 20% and superior left ankle dilation. Moderate mitral regurgitation with a central jet. Hyperdynamic and internal atrial septum. An echodensity versus artifact attached to the intra-arterial septum on the left atrial side was identified on subcostal view. MR the brain is reported as scattered acute/subacute CVA involving the left posterior frontal lobe and left temporal lobe. Additional scattered remote injuries. I personally reviewed the MRI and agree with report. I didn't see hypertense DWI on the right subcortical frontal bites and on the ADC and the its also bright so seems like at a T2 shine through. - Labs CBC & Chem 7: 12/05/23 07:33 12/06/23 07:41 Labs: Abnormal Lab Results - Last 24 Hours (Table) 12/05/23 12/05/23 12/05/23 Range/Units 07:33 16:53 20:53 Carbon Dioxide (22-30) mmol/L BUN (9-20) mg/dL Glucose (74-99) mg/dL POC Glucose (mg/dL) 174 H 144 H (70-110) mg/dL Triglycerides 266.00 H (0.00-149.00) mg/dL VLDL Cholesterol, Calc 53.20 H (5.00-40.00) mg/dL HDL Cholesterol 30.20 L (40.00-60.00) mg/dL 12/06/23 12/06/23 12/06/23 Range/Units 06:16 07:41 11:50 Carbon Dioxide 21 L (22-30) mmol/L BUN 23 H (9-20) mg/dL Glucose 135 H (74-99) mg/dL POC Glucose (mg/dL) 123 H 156 H (70-110) mg/dL Triglycerides (0.00-149.00) mg/dL VLDL Cholesterol, Calc (5.00-40.00) mg/dL HDL Cholesterol (40.00-60.00) mg/dL Assessment and Plan Assessment: This is a 53-year-old gentleman who presents per his outpatient cardiology request because the patient has noticed that he's having the right facial weakness, dysarthria and expressive aphasia for the past 1 week. Patient feels the facial droop has resolved but continues to have expressive aphasia and dysarthria. CT of the head is unremarkable for acute or subacute stroke. Patient urine drug screen is positive for amphetamine and methamphetamine but he denies any drug use and denies being on those medication. Subacute stroke over the left temporal frontal region. Patient presented with dysarthria and expressive aphasia and transient facial droop. The facial droop has resolved. Etiology seems embolic. 2-D echo was reported as echodensity v ersus artifact to the intra-arterial septum of left atrial side rule out a mass/thrombus. Heart failure and EF 20% Uncontrolled diabetes mellitus and the hemoglobin A1c is 9.2 Positive amphetamine and methamphetamine on the urine drug screen the patient denies being on any drug use or medications for ADHD Plan: 2-D echo was reported as severe left ventricle dysfunction with ejection fraction of 20% and superior left ankle dilation. Moderate mitral regurgitation with a central jet. Hyperdynamic and internal atrial septum. An echodensity versus artifact attached to the intra-arterial septum on the left atrial side was identified on subcostal view. Recommend cardiology consultation and SHIVA. I started the patient on aspirin 325mg daily. Will assess if patient does have thrombus then need anticoagulation. He was on any antiplatelets prior to this. Patient is on Lipitor 40 mg daily at bedtime Continue neuro checks Cardiac monitoring PT OT and also appear consulted We'll defer the rest of the medical management to primary team For DVT prophylaxis the patient is on subcu heparin 5000 units every 8 hours. The plan was discussed with the patient and primary attending. Time with Patient: Less than 30
[2023-12-06 16:30] LABS: Glucose,Whole Blood 147 mg/dL (70-110)
[2023-12-06 18:51] LABS: Amphetamine Screen,Urine Detected (NotDetected); Barbiturate Screen,Urine Not Detected (NotDetected); Benzodiazepines Screen,Urine Not Detected (NotDetected); Cocaine Screen,Urine Not Detected (NotDetected); Methadone Screen, Urine Not Detected (NotDetected); Opiate Screen,Urine Not Detected (NotDetected); Oxycodone Screen, Urine Not Detected (NotDetected); Phencyclidine Screen,Urine Not Detected (NotDetected); Tricyclic Antidepressant,Urine Not Detected (NotDetected); Urn Cannabinoid Scrn Not Detected (NotDetected)
[2023-12-06 20:06] LABS: Glucose,Whole Blood 283 mg/dL (70-110)
--- NOTE | 2023-12-07 05:39 | P.PN ---
Subjective Progress Note Date: 12/06/23 Patient is a 53-year-old male with a past medical history of chronic CHF with systolic dysfunction ejection fraction 20%, nonischemic cardiomyopathy diabetes type 2, bilateral lower extremity peripheral neuropathy, osteoarthritis and chronic back pain presents to ER with complaints of facial droop. Patient started having symptoms for the past 5 days. Patient does have right facial droop and dysarthria. He went to see his quality assurance tech today due to his chronic CHF and valvular abnormalities. Patient was recommended to go to ER for further evaluation of the facial droop. Otherwise patient denied any complaints of headache. No complaints of upper or lower extremity weakness. Denied any prior history of CVA. Denies any fever or chills. No recent illnesses. No chest pain or shortness of breath. CT head showed no acute intracranial process. EKG showed sinus rhythm with intraventricular conduction delay. Laboratory data showed sodium 139 potassium 4.6 chloride 106 bicarb is 25 BUN 23 and creatinine 0.85, blood sugar 165. Liver and units are not elevated. Urinalysis showed 4+ glucose and is negative for infection UDS is positive for amphetamines and methamphetamines. 12/07/2023 Patient is seen and evaluated in follow-up today and underwent MRI of the brain today showing scattered acute/subacute CVA involving the left posterior frontal lobe and left temporal lobe with additional scattered remote injuries noted. Patient also underwent 2D echo which shows severe LV dysfunction with an EF of 20% and severe LV dilation with moderate mitral regurgitation, hyperdynamic interatrial septum and an echodensity versus artifact attached to the interatrial septum on the left atrial side was identified. Will consult cardiology with the need for SHIVA. Patient did have a positive drug screen as well with methamphetamine noted although patient denies any drug use. Repeat UDS is ordered and pending. Patient is afebrile with no reports of chest pain or shortness of breath. Patient reports continued tingling and speech disturbances on the right. Patient is inquiring when he can go home. Review of systems: Constitutional: No reports of fatigue, fever, or chills Cardiovascular: No reports of chest pain or palpitations Respiratory: No reports of shortness of breath or cough GI: No reports of nausea, vomiting, or diarrhea : No reports of dysuria or retention Neurovascular: No reports of weakness, reports continued tingling and speech disturbances on the right All medications have been reviewed PHYSICAL EXAMINATION: Patient is lying in the bed comfortably, no acute distress, awake alert and oriented.. HEENT: Normocephalic. Neck is supple. Pupils reactive. Nostrils clear. Oral cavity is moist. Neck reveals no JVD, carotid bruits, or thyromegaly. CHEST EXAMINATION: Trachea is central. Symmetrical expansion. Lung morrow clear to auscultation and percussion. CARDIAC: Normal S1, S2 with no gallops. No murmurs ABDOMEN: Soft. Bowel sounds normal. No organomegaly. No abdominal bruits. Extremities: reveal no edema. No clubbing or cyanosis Neurologically awake, alert, oriented x3. Patient does have right facial droop. No ptosis. Bilateral upper and lower extremity motor strength 5 out of 5. Skin: No rash or skin lesions. Psychiatric: Cooperative. Non-suicidal, anxious Musculoskeletal: No joint swelling or deformity. Normal range of motion. Assessment: Right facial droop and dysarthria likely due to acute CVA. Symptoms started 5 days back. MRI confirms CVA involving the left posterior frontal lobe and left temporal lobe Chronic CHF with systolic dysfunction LVEF fraction 20% with global hypokinesia. Prior history of cardiac catheterization nonobstructive in 2019. Abnormal echo with concerns of an echodensity versus artifact attached to the interatrial septum on the left atrial side, concern for thrombus Moderate MR and moderate TR Diabetes type 2 insulin-dependent, uncontrolled with hyperglycemia noncompliance with medications and follow-up outpatient Nonischemic cardiomyopathy Osteoarthritis GERD Bilateral peripheral neuropathy diabetic DVT prophylaxis with heparin subcu Plan: Patient will be continued on telemetry. Continue with neurochecks. CT head is negative for acute CVA although MRI of the brain confirms there has been a stroke as mentioned previously Neurology following and discussed the MRI and echo as there is concern of an echo abnormality showing a density versus artifact at the interatrial septum concern for thrombus. Will consult cardiology and appreciate input and recommendations. Discussed with neurology and likely need SHIVA Patient did have a positive drug screen for methamphetamines although denies using any drugs and repeat UDS is ordered Continue monitoring Accu-Cheks before meals and at bedtime and continue with insulin regimen and titrate dose as needed Start back on home blood pressure medications and continue with aspirin and statins. Due to multiple complex medical issues, prognosis is guarded The impression and plan of care has been dictated by Nurse Faiza Sidhu as directed. Dr. Jovita MD I have performed a history and examination and MDM of this patient, discussed the same with the dictator, and agree with the dictator's assessment and plan as written ,documented as a scribe. Based on total visit time, I have performed more than 50% of the visit. Objective - Vital Signs Vital signs: Vital Signs Temp 97.6 F 12/06/23 08:33 Pulse 77 12/06/23 08:33 Resp 18 12/06/23 08:33 BP 105/61 12/06/23 08:33 Pulse Ox 99 12/06/23 08:33 FiO2 Intake & Output 12/05/23 12/06/23 12/06/23 18:59 06:59 18:59 Intake Total 360 128 Balance 360 128 Weight 86.183 kg Intake: IV 10 Invasive Line 1 10 Oral 360 118 Other: # Voids 1 - Labs CBC & Chem 7: 12/05/23 07:33 12/06/23 07:41 Labs: Abnormal Lab Results - Last 24 Hours (Table) 12/05/23 12/05/23 12/05/23 Range/Units 07:33 07:33 16:53 Carbon Dioxide (22-30) mmol/L BUN (9-20) mg/dL Glucose (74-99) mg/dL POC Glucose (mg/dL) 174 H (70-110) mg/dL Hemoglobin A1c 9.2 H (<=6.0) % Triglycerides 266.00 H (0.00-149.00) mg/dL VLDL Cholesterol, Calc 53.20 H (5.00-40.00) mg/dL HDL Cholesterol 30.20 L (40.00-60.00) mg/dL 12/05/23 12/06/23 12/06/23 Range/Units 20:53 06:16 07:41 Carbon Dioxide 21 L (22-30) mmol/L BUN 23 H (9-20) mg/dL Glucose 135 H (74-99) mg/dL POC Glucose (mg/dL) 144 H 123 H (70-110) mg/dL Hemoglobin A1c (<=6.0) % Triglycerides (0.00-149.00) mg/dL VLDL Cholesterol, Calc (5.00-40.00) mg/dL HDL Cholesterol (40.00-60.00) mg/dL
[2023-12-07 06:22] LABS: Glucose,Whole Blood 150 mg/dL (70-110)
--- NOTE | 2023-12-07 09:40 | P.CRDCN ---
History of Present Illness Consult date: 12/07/23 Reason for Consult (text): Acute CVA, abnormal echodensity noted on echo, need SHIVA History of present illness: History of present illness: This is a 53-year-old male patient of Dr. Pena with past medical history of hypertension, diabetes, hyperlipidemia, dilated cardiomyopathy with history of normal coronary angiogram in 2019, hypertension. Patient presented to cardiology office on 12/03 for follow-up after hospitalization at [facility] at which time he was seen for congestive heart failure. Patient was experiencing expressive aphasia that had been going on for a week and was sent directly into the hospital for further evaluation. Patient has subsequently been diagnosed with subacute CVA. We have been asked to evaluate the patient for SHIVA. Patient states that he is usually active with no signs of chest pain or shortness of breath no palpitations no lower extremity edema no PND no orthopnea. He denies any cough or fever. No blood in his urine or stool. No previous history of's stroke and no seizure activity. He does have history of diabetes. Patient denies having any extremity weakness. He denies use of caffeine no alcohol use. He chewed tobacco but did not smoke and quit chewing a number of years ago. Patient feels that her speech is not quite back to normal. EKG sinus rhythm Chest x-ray: No acute process MRI of the brain revealed scattered acute/subacute CVA involving the left posterior frontal lobe and left temporal lobe. Additional scattered remote injuries. Echocardiogram performed on 12/05/2023 reveals severe LV dysfunction with EF of 20% and severe LV dilation. Moderate mitral regurgitation with central jet. Hyperdynamic interatrial septum. An echodensity versus artifact attached to the interatrial septum on the left atrial side was identified on subcostal view. CBC INR, electrolytes unremarkable. Creatinine 0.81 and BUN 23. Blood sugar 283. Hemoglobin A1c 9.2. Liver function test are normal. Triglycerides 266, cholesterol 184, LDL 100, HDL 30. Urinalysis glucose 4+. Urine drug screen positive for amphetamines and methamphetamines. Home cardiac medications: Coreg 6.25 mg twice daily, Jardiance 10 mg daily, Lasix 20 mg daily, losartan 25 mg at bedtime, Nitrostat as needed, Crestor 20 mg at bedtime, Aldactone 25 mg daily. Echocardiogram performed 11/17/2023 at [facility] revealed EF 10 to 15%, global hypokinesia, enlarged left ventricle, LAE, moderate MR, moderate TR, moderate pulmonary hypertension. Review Of Systems: At the time of my exam: CONSTITUTIONAL: Denies fever or chills. HEENT: Denies blurred vision, vision changes, or eye pain. Denies hemoptysis CARDIOVASCULAR: Denies chest pain. Denies orthopnea. Denies PND. Denies palpita tions RESPIRATORY: Denies shortness of breath. GASTROINTESTINAL: Denies abdominal pain. Denies nausea or vomiting. HEMATOLOGIC: Denies bleeding disorders. GENITOURINARY: Denies any blood in urine. SKIN: Denies pruitis. Denies rash. Physical examination: Gen: This is a 53-year-old male in no acute distress VS: reviewed HEENT: Head is atraumatic, normocephalic. Pupils equal, round. Sclerae is an icteric. NECK: Supple. No JVD. LUNGS: Clear to auscultation. No wheezes or rhonchi. No intercostal retractions. HEART: Regular rate and rhythm. No murmur. ABDOMEN: Soft No tenderness. EXTREMITIES: No pedal edema. No calf tenderness. NEUROLOGICAL: Patient is awake, alert and oriented x3. Assessment: Subacute CVA Dilated cardiomyopathy with EF 10 to 15% Valvular heart disease with moderate MR, moderate TR Moderate pulmonary hypertension Hypertension Diabetes Hyperlipidemia Plan: Continue patient's home cardiac medications Patient has been started on aspirin 325 mg daily Patient will be scheduled for SHIVA today with Dr. Lazaro Further recommendations to follow based upon clinical course Thank you kindly for this consultation. Nurse practitioner note has been reviewed, I agree with documented findings and plan of care. Patient was seen and examined. Past Medical History Past Medical History: Heart Failure, Diabetes Mellitus, GERD/Reflux, Os teoarthritis (OA), Renal Disease Additional Past Medical History / Comment(s): NIDDM type II, neuropathy bilateral feet, R leg nerve damage-cannot pick foot up very well, recent vertigo and lower leg edema, generalized arthritis, pt states his labs for kidney function have been somewhat elevated. History of Any Multi-Drug Resistant Organisms: None Reported Past Surgical History: Back Surgery Additional Past Surgical History / Comment(s): Lower back surgery for herniated disc. Past Anesthesia/Blood Transfusion Reactions: No Reported Reaction Additional Past Anesthesia/Blood Transfusion Reaction / Comment(s): Pt states he received blood as a d/t ABO incompatability. Past Psychological History: No Psychological Hx Reported Past Alcohol Use History: Occasional Past Drug Use History: None Reported - Past Family History Mother Family Medical History: Cancer Additional Family Medical History / Comment(s): Mother of complication r/t colon cancer. Father Family Medical History: Coronary Artery Disease (CAD) Additional Family Medical History / Comment(s): Father had a coronary stent. Medications and Allergies Home Medications Medication Instructions Recorded Confirmed Type Nitroglycerin Sl Tabs [Nitrostat] 0.4 mg SUBLINGUAL Q5M PRN #30 tab 03/09/19 12/04/23 Rx Empagliflozin [Jardiance] 10 mg PO DAILY 12/04/23 12/04/23 History Furosemide [Lasix] 20 mg PO DAILY 12/04/23 12/04/23 History Insulin Glargine,Hum.rec.anlog 20 unit SQ BID 12/04/23 12/04/23 History [Basaglar Kwikpen U-100] Losartan [Cozaar] 25 mg PO HS 12/04/23 12/04/23 History Rosuvastatin [Crestor] 20 mg PO HS 12/04/23 12/04/23 History Spironolactone [Aldactone] 25 mg PO DAILY 12/04/23 12/04/23 History carvediloL [Coreg] 6.25 mg PO BID 12/04/23 12/04/23 History Allergies Allergy/AdvReac Type Severity Reaction Status Date / Time No Known Allergies Allergy Verified 12/04/23 13:35 Physical Exam Vitals: Vital Signs Temp Pulse Resp BP BP Pulse Ox 12/07/23 04:00 70 16 120/75 98 12/06/23 23:42 97.6 F 77 16 123/58 95 12/06/23 20:00 97.4 F L 76 16 99/63 12/06/23 15:36 98.2 F 86 16 114/77 96 12/06/23 12:50 97.7 F 82 16 112/70 98 12/06/23 08:33 97.6 F 77 18 105/61 99 12/06/23 08:03 98 Intake and Output 12/06/23 12/07/23 12/07/23 22:59 06:59 14:59 Intake Total 180 Balance 180 Intake: Oral 180 Other: Voiding Method Toilet Toilet # Voids 2 Results 12/05/23 07:33 12/06/23 07:41 Comprehensive Metabolic Panel 12/06/23 Range/Units 07:41 Sodium 137 (137-145) mmol/L Potassium 4.4 (3.5-5.1) mmol/L Chloride 107 (98-107) mmol/L Carbon Dioxide 21 L (22-30) mmol/L BUN 23 H (9-20) mg/dL Creatinine 0.81 (0.66-1.25) mg/dL Glucose 135 H (74-99) mg/dL Calcium 8.9 (8.4-10.2) mg/dL Current Medications Generic Name Dose Route Start Last Admin Trade Name Freq PRN Reason Stop Dose Admin Aspirin 325 mg 12/05/23 13:15 12/06/23 08:51 Aspirin 325 Mg Tab PO 325 mg DAILY HUMPHREY Administration Atorvastatin Calcium 40 mg 12/04/23 21:00 12/06/23 20:42 Atorvastatin 40 Mg Tab PO 40 mg HS HUMPHREY Administration Carvedilol 6.25 mg 12/04/23 17:30 12/07/23 06:30 Carvedilol 6.25 Mg Tab PO 6.25 mg BID-W/MEALS HUMPHREY Administration Dapagliflozin 5 mg 12/05/23 09:00 12/06/23 08:51 Dapagliflozin Propanediol 5 Mg Tablet PO 5 mg DAILY HUMPHREY Administration Dextrose/Water 25 ml 12/04/23 14:50 Dextrose 50% Syringe 50 Ml IVP PER PROTOCOL PRN Hypoglycemia Protocol Dextrose/Water 50 ml 12/04/23 14:50 Dextrose 50% Syringe 50 Ml IVP PER PROTOCOL PRN Hypoglycemia Protocol Furosemide 20 mg 12/05/23 09:00 12/06/23 08:51 Furosemide 20 Mg Tab PO 20 mg DAILY HUMPHREY Administration Heparin Sodium (Porcine) 5,000 unit 12/05/23 00:00 12/06/23 23:42 Heparin Sodium,Porcine 5,000 Unit/Ml 1 Ml Vial SQ 5,000 unit Q8HR HUMPHREY Administration Insulin Aspart 0 unit 12/04/23 17:30 12/07/23 06:27 Insulin Aspart (Novolog) 100 Unit/Ml Vial SQ Not Given AC-TID HUMPHREY Protocol Losartan Potassium 25 mg 12/04/23 21:00 12/06/23 20:42 Losartan 25 Mg Tab PO 25 mg HS HUMPHREY Administration Spironolactone 25 mg 12/05/23 09:00 12/06/23 08:51 Spironolactone 25 Mg Tab PO 25 mg DAILY HUMPHREY Administration Intake and Output 12/06/23 12/07/23 12/07/23 22:59 06:59 14:59 Intake Total 180 Balance 180 Intake: Oral 180 Other: Voiding Method Toilet Toilet # Voids 2 12/05/23 07:33 12/06/23 07:41
[2023-12-07] MEDS: BENZOCAINE SPRAY 1 CAN MUCOUS MEM ONE (12:02)
[2023-12-07] MEDS: SODIUM CHLORIDE 0.9% 250 ML IV ONE (12:12)
[2023-12-07] MEDS: fentaNYL (PF) 50 MCG/ML 2 ML AMP IVP ONE (12:15)
[2023-12-07] MEDS: MIDAZOLAM 2 MG/2 ML VIAL IVP ONE (12:15)
--- NOTE | 2023-12-07 12:32 | P.PCN ---
Date of Procedure: 12/07/23 Description of Procedure: Indication: CVA and intracardiac source Procedure Description: After explaining the procedure to the patient, it's risk and complications, blood pressure, heart rate and O2 saturation were monitored. The throat was sprayed with Cetacaine. Patient received 2 mg intravenous Versed, 50 mcg intravenous fentanyl. The probe was introduced into the esophagus without difficulty. Images were obtained. Following that, the probe was removed. There was no immediate complication. Findings: Left atrial size is dilated, left atrial appendage is normal. Left ventricular systolic function is severely impaired with severe global hypokinesis. Ejection fraction is estimated at 10 to 15%. Evidence of by ventricular enlargement was noted. The aortic valve, mitral valve, tricuspid and pulmonic valve appears to be normal. Descending thoracic aorta appears to be normal. No pericardial fusion was noted. The interatrial septum appears to be normal. There was no shunting across the interatrial septum with Valsalva maneuver. Chiari network was noted in the right atrium. Doppler: Pulse wave and color Doppler were obtained, and revealed severe eccentric mitral regurgitation with mild to moderate tricuspid regurgitation. There was no shunting by color Doppler study. Conclusion: 1. Dilated left atrium with normal appearance of the left atrial appendage 2. Normal appearance of the interatrial septum with no evidence of shunting 3. Severe dilated cardiomyopathy 4. Severe eccentric mitral regurgitation 5. Mild to moderate tricuspid regurgitation
[2023-12-07] MEDS: fentaNYL (PF) 50 MCG/ML 2 ML AMP ONE (12:58)
[2023-12-07] MEDS: SODIUM CHLORIDE 0.9% 1,000 ML IV SCH (13:06)
[2023-12-07 13:07] LABS: Glucose,Whole Blood 139 mg/dL (70-110)
--- NOTE | 2023-12-07 15:41 | P.PN ---
Subjective Progress Note Date: 12/07/23 Patient denies any new neurological issues. He feels back to baseline now. Today he had a SHIVA which was unremarkable for any clot and no PFO or shunting. Patient states that he does have cardiac issues and he has been out of medication since towards the end of August 2023 and is out for like 2-3 month since his primary is not longer practicing. Objective - Vital Signs Vital signs: Vital Signs Temp 97.9 F 12/07/23 09:59 Pulse 73 12/07/23 13:00 Resp 16 12/07/23 09:59 BP 95/59 12/07/23 13:07 Pulse Ox 95 12/07/23 13:00 FiO2 Intake & Output 12/06/23 12/07/23 12/07/23 18:59 06:59 18:59 Intake Total 488 160 Balance 488 160 Weight 86.183 kg Intake: IV 10 160 Invasive Line 1 10 10 Oral 478 0 Other: Voiding Method Toilet Toilet Toilet # Voids 2 2 0 # Bowel Movements 0 - Exam GENERAL: The patient is lying in bed and is not in acute distress. NEUROLOGICAL: Higher mental function: The patient is awake, alert, oriented to self, place and time. Patient is following commands. No aphasia and no neglect. Cranial nerves: The pupils are round, equal and reactive to light and accommodation. Visual morrow are full to confrontation throughout. Extraocular movement is intact no nystagmus is noted. Facial sensation is normal to touch throughout. The facial strength is normal throughout. Hearing is normal bilaterally to hand rub. Tongue is midline and moved [id number] without any difficulty. Subtle dysarthria is noted. Shoulder shrug is normal bilaterally. Motor: The strength is 5 over 5 throughout. Normal tone and bulk. Cerebellum: Normal finger to nose heel to chin bilaterally. Sensation: Sensation is normal to touch throughout. Reflexes (right/left): 2+ throughout. Plantars are downgoing bilaterally. Some other workup during his hospital visit consisted of: Lipid panel triglycerides 266, cholesterol 184, LDLs 100, HDL 30 Most recent serum glucose is 143. Sodium is 139. Hemoglobin A1c is 9.2. Calcium is 8.8. TSH is 2.280 Urine drug screen on 12/04/23 is amphetamine and methamphetamine are positive. Repeat Urine drug screen on 12/06/23: +ve amphetamine again. CT of the head is reported as no acute intracranial process. I personally reviewed the CT and agree with the report. EKG is reported as sinus rhythm. Intraventricular conduction delay. Abnormal EKG. Carotid duplex is reported as less than 50% stenosis of bilateral carotid bifurcation. 2-D echo was reported as severe left ventricle dysfunction with ejection fraction of 20% and superior left ankle dilation. Moderate mitral regurgitation with a central jet. Hyperdynamic and internal atrial septum. An echodensity versus artifact attached to the intra-arterial septum on the left atrial side was identified on subcostal view. MR the brain is reported as scattered acute/subacute CVA involving the left posterior frontal lobe and left temporal lobe. Additional scattered remote injuries. I personally reviewed the MRI and agree with report. I didn't see hypertense DWI on the right subcortical frontal bites and on the ADC and the its also bright so seems like at a T2 shine through. SHIVA: 1. Dilated left atrium with normal appearance of the left atrial appendage 2. Normal appearance of the interatrial septum with no evidence of shunting 3. Severe dilated cardiomyopathy 4. Severe eccentric mitral regurgitation 5. Mild to moderate tricuspid regurgitation - Labs CBC & Chem 7: 12/05/23 07:33 12/06/23 07:41 Labs: Abnormal Lab Results - Last 24 Hours (Table) 12/06/23 12/06/23 12/06/23 Range/Units 16:28 17:20 20:04 POC Glucose (mg/dL) 147 H 283 H (70-110) mg/dL Ur Amphetamines Screen Detected H (NotDetected) 12/07/23 12/07/23 Range/Units 06:20 13:05 POC Glucose (mg/dL) 150 H 139 H (70-110) mg/dL Ur Amphetamines Screen (NotDetected) Assessment and Plan Assessment: This is a 53-year-old gentleman who presents per his outpatient cardiology request because the patient has noticed that he's having the right facial weakness, dysarthria and expressive aphasia for the past 1 week. Patient feels the facial droop has resolved but continues to have expressive aphasia and dysarthria. CT of the head is unremarkable for acute or subacute stroke. Patient urine drug screen is positive for amphetamine and methamphetamine but he denies any drug use and denies being on those medication. Patient states he's been out of his all his medication since the end of August and he's been out for 2-3 month since his primary physican is no longer practicing. Subacute stroke over the left temporal frontal region. Patient presented with dysarthria and expressive aphasia and transient facial droop. The facial droop has resolved. Etiology is cryptogenic but seems embolic. 2-D echo was reported as echodensity versus artifact to the intra-arterial septum of left atrial side rule out a mass/thrombus but SHIVA is negative Dilated cardiomyopathy with EF 10-15% Moderate pulmonary hypertension Uncontrolled diabetes mellitus and the hemoglobin A1c is 9.2 Positive amphetamine and methamphetamine on the urine drug screen the patient denies being on any drug use or medications for ADHD. Had another repeat UDS and positive for amphetamine. Plan: I started the patient on aspirin 325mg daily. I also added Plavix 75mg daily. Was not on antiplatelets prior to admission. From Neurological perspective to be on dual antiplatelets for 21 days and after 21 days and discontinue Plavix but continue aspirin indefinitely from neurology perspective. Patient is on Lipitor 40 mg daily at bedtime Continue neuro checks Cardiac monitoring: Was notified no a-fib or flutter on telemetry. Notified primary to place him on event monitor for 30 days which he received device today. PT OT and also appear consulted We'll defer the rest of the medical management to primary team For DVT prophylaxis the patient is on subcu heparin 5000 units every 8 hours. Upon discharge, recommend to follow-up with neurologist as outpatient within 1-2 weeks. The plan was discussed with the patient and primary team N.P. Otherwise, no additional neurological work-up. Time with Patient: Less than 30
[2023-12-07 16:58] VITALS: BP 97/65; PULSE 76; RESP 18; TEMP 98.2
[2023-12-07] MEDS: CLOPIDOGREL 75 MG TAB PO SCH (17:13)
--- NOTE | 2023-12-10 11:00 | P.DS ---
Providers Date of admission: 12/04/23 14:37 Expected date of discharge: 12/07/23 Attending physician: Destinee Hussein Consults: 12/04/23 14:35 Consult Physician Routine Consulting Provider: Rashad Murcia Consult Reason/Comments: cva Do you want consulting provider notified?: Yes 12/06/23 14:15 Consult Physician Urgent Consulting Provider: Juni Landrum Consult Reason/Comments: acute CVA, abnormal echodensity noted on ECHO, need SHIVA Do you want consulting provider notified?: Yes Primary care physician: Michelle Lopez [facility] Course: Final diagnosis Right facial droop and dysarthria likely due to acute CVA. Symptoms started 5 days back. MRI confirms CVA involving the left posterior frontal lobe and left temporal lobe Chronic CHF with systolic dysfunction LVEF fraction 20% with global hypokinesia. Prior history of cardiac catheterization nonobstructive in 2019. Abnormal echo with concerns of an echodensity versus artifact attached to the interatrial septum on the left atrial side, concern for thrombus, ruled out PE was negative Moderate MR and moderate TR Diabetes type 2 insulin-dependent, uncontrolled with hyperglycemia noncompliance with medications and follow-up outpatient Nonischemic cardiomyopathy Osteoarthritis GERD Bilateral peripheral neuropathy diabetic DVT prophylaxis with heparin subcu Discharge disposition Patient is being discharged in a stable condition with guarded prognosis to home. Patient will follow-up with Dr. Aaron Bills in the outpatient setting upon discharge. Patient is to continue with an event monitor on discharge and outpatient follow-up with cardiology as well as neurology as scheduled. Total time taken is greater than 35 minutes. Hospital course This is a 53-year-old male who was recently admitted with right facial droop and difficulty in speech with concerns of CVA. Symptoms had started 5 days back and outside of the window for tPA. CT was negative although MRI of the brain did confirm CVA involving the left posterior frontal lobe as well as left temporal lobe. Echo with severe global hypokinesia and systolic dysfunction with an EF of 20%. Patient being followed by cardiology and echo there was an echodensity versus artifact noted and cardiology was consulted. Patient underwent SHIVA which was negative. Patient is a diabetic and noncompliant with medications and outpatient follow-up. Patient reports he has an appointment in the outpatient setting to establish with a new primary care provider as his provider was Dr. Martinez who is no longer practicing. Patient has been cleared by consultations for discharge home today and will receive an event monitor prior to discharge. Refill of all patient's medications were sent to the pharmacy and instructed the patient to keep his newly established appointment with Dr. Aaron Bills as scheduled. Patient to follow-up with neurology as well as cardiology outpatient. Please refer to other consultation notes for further HPI. Currently no reports of chest pain, shortness of breath, or palpitations. Patient is afebrile. No reports of nausea or vomiting and patient is tolerating diet. Patient will be discharged home today. Guarded prognosis and extremely high risk for readmissions given patient's significant comorbidities and noncompliance to medications and follow-up. Physical exam: Gen: This is a 53-year-old male who is awake, alert and oriented x 3, well- developed, well-nourished HEENT: Head is atraumatic, normocephalic. Pupils equal, round. Sclerae is anicteric. NECK: Supple. No JVD. No lymphadenopathy. No thyromegaly. LUNGS: Clear to auscultation. No wheezes or rhonchi. No intercostal retractions. HEART: Regular rate and rhythm. No murmur. ABDOMEN: Soft. Bowel sounds are present. No masses. No tenderness. EXTREMITIES: No pedal edema. No calf tenderness. NEUROLOGICAL: Patient is awake, alert and oriented x3. Cranial nerves 2 through 12 are grossly intact. Please refer to medication reconciliation sheet for a list of medications. The impression and plan of care has been dictated by Jane Arevalo, Nurse Practitioner as directed. Dr. Jovita MD I have performed a history and examination and MDM of this patient, discussed the same with the dictator, and agree with the dictator's assessment and plan as written ,documented as a scribe. Based on total visit time, I have performed more than 50% of the visit. Patient Condition at Discharge: Stable Plan - Discharge Summary Discharge Rx Participant: No New Discharge Prescriptions: New Aspirin 325 mg PO DAILY #30 tab Clopidogrel [Plavix] 75 mg PO DAILY 21 Days #21 tab Continue Nitroglycerin Sl Tabs [Nitrostat] 0.4 mg SUBLINGUAL Q5M PRN #30 tab PRN Reason: Chest Pain carvediloL [Coreg] 6.25 mg PO BID #60 tab Losartan [Cozaar] 25 mg PO HS #30 tab Rosuvastatin [Crestor] 20 mg PO HS #30 tab Furosemide [Lasix] 20 mg PO DAILY #30 tab Insulin Glargine,Hum.rec.anlog [Basaglar Kwikpen U-100] 20 unit SQ BID 30 Days #5 each Empagliflozin [Jardiance] 10 mg PO DAILY #30 tab Changed Spironolactone [Aldactone] 25 mg PO DAILY #30 tab Discharge Medication List Nitroglycerin Sl Tabs [Nitrostat] 0.4 mg SUBLINGUAL Q5M PRN #30 tab 03/09/19 [Rx ] Aspirin 325 mg PO DAILY #30 tab 12/07/23 [Rx] Clopidogrel [Plavix] 75 mg PO DAILY 21 Days #21 tab 12/07/23 [Rx] Empagliflozin [Jardiance] 10 mg PO DAILY #30 tab 12/07/23 [Rx] Furosemide [Lasix] 20 mg PO DAILY #30 tab 12/07/23 [Rx] Insulin Glargine,Hum.rec.anlog [Basaglar Kwikpen U-100] 20 unit SQ BID 30 Days #5 each 12/07/23 [Rx] Losartan [Cozaar] 25 mg PO HS #30 tab 12/07/23 [Rx] Rosuvastatin [Crestor] 20 mg PO HS #30 tab 12/07/23 [Rx] Spironolactone [Aldactone] 25 mg PO DAILY #30 tab 12/07/23 [Rx] carvediloL [Coreg] 6.25 mg PO BID #60 tab 12/07/23 [Rx] Follow up Appointment(s)/Referral(s): Salomon Pena MD [STAFF PHYSICIAN] - 12/15/23 9:45 am Monico Solis MD [REFERRING] - 1 Week (neurology, please call and make appointment ) Deanna Hoffman MD [STAFF PHYSICIAN] - 1 Week (primary care, please call and make appointment ) Patient Instructions/Handouts: Heart Failure (DC), Ischemic Stroke (DC) Activity/Diet/Wound Care/Special Instructions: Patient needs an event monitor placed for discharge Activity limited until follow-up Follow-up with cardiology outpatient in 1 to 2 weeks Continue monitoring blood sugars and keep a diary of all readings for follow up Follow-up with neurology outpatient Follow-up with primary care provider to establish Continue aspirin and Plavix for 21 days, then discontinue Plavix and continue with aspirin daily Discharge Disposition: HOME SELF-CARE
== END 2023-12-07 17:23 | disposition home or self-care (01) | DRG 65 ==
LOC: EC 11:04 → 3SCARD 14:37
PROVIDERS: ADMIT Internal Medicine; ATTEND Internal Medicine
PROC: B246ZZ4 Ultrasonography of Right and Left Heart, Transesophageal (ICD-10-PCS; principal; 2023-12-07 12:00)
DX: I63.9 Cerebral infarction, unspecified (principal); I42.0 Dilated cardiomyopathy; I42.8 Other cardiomyopathies; I50.22 Chronic systolic (congestive) heart failure; R47.01 Aphasia; R47.1 Dysarthria and anarthria; R29.703 NIHSS score 3; I11.0 Hypertensive heart disease with heart failure; E11.42 Type 2 diabetes mellitus with diabetic polyneuropathy; Z79.4 Long term (current) use of insulin; M19.90 Unspecified osteoarthritis, unspecified site; K21.9 Gastro-esophageal reflux disease without esophagitis; Z91.148 Patient's other noncompliance with medication regimen for other reason; E11.65 Type 2 diabetes mellitus with hyperglycemia; E78.5 Hyperlipidemia, unspecified; I08.1 Rheumatic disorders of both mitral and tricuspid valves; I27.29 Other secondary pulmonary hypertension; I25.10 Atherosclerotic heart disease of native coronary artery without angina pectoris; I27.20 Pulmonary hypertension, unspecified; F90.9 Attention-deficit hyperactivity disorder, unspecified type; R29.810 Facial weakness; Z79.84 Long term (current) use of oral hypoglycemic drugs; Z79.899 Other long term (current) drug therapy; Z82.49 Family history of ischemic heart disease and other diseases of the circulatory system
CPT/HCPCS: 36415; 70450; 70551; 71046; 80048; 80053; 80061; 80306; 81003; 82140; 82550; 83036; 84443; 85025; 85610; 85730; 93005; 93270; 93306; 93312; 93320; 93325; 93880; 94760; 96372; 96374; 96376; 99285